=== PATIENT | female | born 1975 | race Caucasian/White ===

== ENCOUNTER 2024-04-01 15:12 | Outpatient (CLI) | payer OTHER, SELFPAY ==
--- NOTE | ~2024-04-01 | US_ITS ---
LEFT LOWER EXTREMITY VENOUS ULTRASOUND Ordering provider: Deborah Cummings NP History: . M79.426 - Pain in leg, unspecified . Comparison: None. FINDINGS: --COMMON FEMORAL: Patent and free of thrombus. Normal compressibility, phasic flow and augmentation. --PROXIMAL SUPERFICIAL FEMORAL: Patent and free of thrombus. Normal compressibility, phasic flow and augmentation. --DISTAL SUPERFICIAL FEMORAL: Patent and free of thrombus. Normal compressibility, phasic flow and au gmentation. --POPLITEAL: Patent and free of thrombus. Normal compressibility, phasic flow and augmentation. --POSTERIOR TIBIAL: Patent and free of thrombus. Normal compressibility, phasic flow and augmentation . IMPRESSION: Negative left lower extremity venous US. No deep vein thrombosis. Reviewed, dictated and finalized at location A. OMS PATROL OFFICER
== END 2024-04-01 15:13 | disposition home or self-care (01) ==
LOC: GOSHIMG 15:13
PROVIDERS: PCP Clinical Nurse Specialist; Visit Provider Nurse Practitioner
DX: M79.662 Pain in left lower leg (principal); M79.89 Other specified soft tissue disorders
CPT/HCPCS: 93971

== ENCOUNTER 2024-08-15 09:16 | Outpatient (CLI) | payer OTHER, SELFPAY ==
--- NOTE | ~2024-08-15 | US_ITS ---
RIGHT LOWER EXTREMITY VENOUS ULTRASOUND Ordering provider: YAMILA Burroughs History: . M79.89 - Other specified soft tissue disorders . Comparison: None. FINDINGS: --COMMON FEMORAL: Patent and free of thrombus. Normal compressibility, phasic flow and augmentation. --PROXIMAL SUPERFICIAL FEMORAL: Patent and free of thrombus. Normal compressibility, phasic flow and augmentation. --DISTAL SUPERFICIAL FEMORAL: Patent and free of thrombus. Normal compressibility, phasic flow and au gmentation. --POPLITEAL: Patent and free of thrombus. Normal compressibility, phasic flow and augmentation. --POSTERIOR TIBIAL: Patent and free of thrombus. Normal compressibility, phasic flow and augmentation . No mass was performed in the area of concern. IMPRESSION: Negative right lower extremity venous US. No deep vein thrombosis. Reviewed, dictated and finalized at location A.
== END 2024-08-15 09:17 | disposition home or self-care (01) ==
LOC: GOSHIMG 09:16
PROVIDERS: PCP Clinical Nurse Specialist; Visit Provider Clinical Nurse Specialist
DX: M79.89 Other specified soft tissue disorders (principal)
CPT/HCPCS: 93971

== ENCOUNTER 2024-08-15 09:47 | Outpatient (CLI) | payer OTHER, SELFPAY ==
--- OUTSIDE RECORDS SUMMARY | 2024-08-15 09:51 | XMS_ITS | Encounter Summary ---
Author Organization [facility] Address [address] [place] [address] Phone Care Team Providers Care Credit Support Specialist Name Role Phone Akhil Wagner DPM Unavailable [phone] Dima Laurent DO Primary Care Provider Molly Ibarra APRN, SENIOR QA AUTOMATION ENGINEER Unavailable Reason for Visit * Reason Comments Medication Refill Encounter Details Date Type Department Care Team (Late st Contact Info) Description 03/08/2022 Refill [facility] Oncology Services [address] [place] [address] Alberto Myles MD [address] [place] [address] Medication Refill Social History Tobacco Use Types Packs/Day Years Used Date Smoking Tobacco: Former Cigarettes 0.3 4 Smokeless Tobacco: Never Comments:Quit over 20yrs ago Alcohol Use Standard Drinks/Week Comments Yes 0 (1 standard drink = 0.6 oz pur e alcohol) socially Sexually Active Control Partners Comments Yes Comments No Sex and Gender Information Value Date Recorded Sex Assigned at Not on file Legal Sex Female 11:58 PM CDT Gender Identity Not on file Sexual Orientation Not on file COVID-19 Exposure Response Date Recorded In the last 10 days, have yo u been in contact with someone who was confirmed or suspected to have Coronavirus/COVID-19? No / Unsure 02/07/2022 7:23 AM CORRECTIVE THERAPY AIDE documented as of this encounter Miscellaneous Notes * Telephone Encounter - Amy Guerrero RN - 03/13/2022 4:37 PM CORRECTIVE THERAPY AIDE Omeprazole order pended, please review. Please review messages below. ECTIVE THERAPY AIDE * Telephone Encounter - Amy Guerrero RN - 03/13/2022 4:37 PM CORRECTIVE THERAPY AIDE Images from the original note were not included. Claire Jenkins RN You 2 hours ago (2:09 PM) Can you please follow up on this refill. Dr Sterling's note states patient is to continue the Omeprazole but Dr Myles only ordered it until the patient was seen in GI. It now needs to be filled by Dr Sterling. Thank you Claire Muñoz ASSOCIATE TECHNICIAN [phone] ECTIVE THERAPY AIDE * Telephone Encounter - Radha Luciano RN - 03/09/2022 3:18 PM CST Forwarding to GI nurse/team for future refills. Hallie's last note states to continue med. Dr. Myles ordered the Omeprazole originally to get her through until her GI refill. ECTIVE THERAPY AIDE documented in this encounter Plan of Treatment Upcoming Encounters Date Type Department Care Team (Late st Contact Info) Description 04/17/2025 3:20 PM CORRECTIVE THERAPY AIDE Office Visit [facility] Oncology Services [address] [place] [id number] Lisa Wadswroth Kinga, PAC [address] [place] [address] Discharge Disposition: Discharged to home or Selfcare documented as of this encounter Visit Diagnoses Not on filedocumented in this encounter Care Teams Credit Support Specialist Relationship Specialty Start Date End Date Dima Laurent DO [address] [facility] [place] [address] PCP - General Internal Medicine 10/06/21 Akhil Wagner DPM Podiatry 05/17/15 Molly Ibarra APRN, SENIOR QA AUTOMATION ENGINEER [address] [place] [address] Nurse Practitioner Advanced Practice Nurse 05/04/22 documented as of this encounter
--- OUTSIDE RECORDS SUMMARY | 2024-08-15 09:51 | XMS_ITS | Clinical Summary ---
Author Organization [facility] Address [address] [place] [address] Care Team Providers Care Salesforce Administrator Name Role Phone Carlos Ratliff Primary Care Provider [phone] Dom Barney MD Unavailable [phone] Allergies Active Allergy Reactions Criticality Noted Date Comments Erythromycin Nausea only,Vomiting High Reaction: Nausea, Vomiting, , Medications propranolol XL (INDERAL XL) 80 mg 24 hr capsule take 1 capsule by oral route every day at bedtime 0 0 12/15/19 16 Active Additional Information Patient taking differently:80 mgoral Nightly, Indications: Migraine Prevention, Reported on 11/27/2021 triamcinolone (KENALOG) 0.5 % cream apply by topical route 2 times every day NEEDED 0 05/11/19 11 Active Additional Information Patient taking differently:0.5 %topical As needed, rash, Reported on 11/27/2021 levothyroxine sodium (TIROSINT) 112 mcg capsule take 1 by Oral route every day 30 3 05/11/19 11 Active Additional Information Patient taking differently:112 mcgoral Daily (early AM), Indications: hypothyroidism, Reported on 11/27/2021 lisinopril (PRINIVIL,ZESTRIL) 20 mg tabletIndications: hypertension Take 30 mg by mouth displayer merchandise before breakfast 07/24/19 19 Active cholecalciferol (VITAMIN D-3) 50,000 unit tabletIndications: Prevention of Vitamin D Deficiency Take 50,000 Units by mouth once a week Mondays Active pravastatin (PRAVACHOL) 40 mg tabletIndications: hyperlipidemia Take 40 mg by mouth displayer merchandise before breakfast 07/24/19 19 Active furosemide (LASIX) 20 mg tabletIndications: Edema Take 20 mg by mouth as needed Active medroxyPROGESTERon e (PROVERA) 10 mg tabletIndications: Abnormal Uterine Bleeding due to Hormonal Imbalance Take 1 tab daily , once a day x 90 days. 30 tablet 2 12/26/19 19 Active Additional Information Patient not taking.Reported on 11/27/2021 rizatriptan BRAND REPRESENTATIVE (MAXALT-BRAND REPRESENTATIVE) 10 mg disintegrating tablet Take 10 mg by mouth once as needed for migraine 5 01/20/20 19 Active liraglutide, weight loss, 3 mg/0.5 mL (18 mg/3 mL) pen injectorIndication s:Weight Loss Management for Obese Patient (BMI >= 30) Inject 1.8 mg under the skin daily Indications: weight loss management for an obese person Active cholestyramine, bulk, powder Take 1 Dose by mouth nightly Active chlorpheniramine (CHLOR-TRIMETON) 4 mg tablet Take 4 mg by mouth every 6 (six) hours as needed for rhinitis Active acetaminophen (TYLENOL) 500 mg tablet Take 1 tablet (500 mg total) by mouth every 6 (six) hours as needed for pain 90 tablet 04/10/19 20 Active Additional Information Patient not taking.Reported on 11/27/2021 cimetidine (TAGAMET) 800 mg tablet Take 1 tablet by mouth daily 05/21/19 21 Active omeprazole (PriLOSEC) 40 mg capsule Take 40 mg by mouth daily 11/22/19 22 Active ferrous gluconate (FERGON) 240 mg (27 mg of elemental iron) tablet Take 240 mg by mouth 05/21/19 21 Active rOPINIRole (REQUIP) 0.25 mg tablet Take 0.25 mg by mouth nightly Active amLODIPine (NORVASC) 10 mg tablet Take 10 mg by mouth daily Active cyanocobalamin, vitamin B-12, (VITAMIN B-12 ORAL) Take by mouth Active melatonin solution 1 mg/mL Take by mouth Active Active Problems Problem Noted Date Diagnosed Date Endometrial hyperplasia with atypia 03/14/2019 Overview (03/14/2019): Added automatically from request for surgery [id number] Episode of heavy vaginal bleeding 01/20/2019 Overview (01/20/2019): Sched pelvic US HA with probable EMB; will await results of EMB;stop OCP, will go ahead and start Provera 10mg/day x [address] Barney and Dr. March; check CBC; looking through pt's hx, does have a hx of anemia with Hgbs of 9- 11.6; enc to go to ER if saturating more than 1 pad/hour; call with any questions or concerns. 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 Vitamin D deficiency 08/09/2013 Overview (06/30/2016): Vitamin D deficiency Hypothyroidism 08/09/2013 Overview (06/30/2016): Hypothyroidism Disorder of thyroid 02/18/2013 Overview (06/30/2016): Thyroid disease Depression 02/18/2013 Overview (06/30/2016): Depression Hypertension 02/18/2013 Overview (06/30/2016): Hypertension Hyperlipidemia 11/30/2011 Overview (06/30/2016): Hyperlipidemia LDL goal < 100 Carbuncle/boil 05/11/2010 Overview (06/29/2016): Recurrent boils Gastroesophageal reflux disease 05/11/2010 Overview (06/30/2016): GERD (gastroesophageal reflux disease) Polycystic ovaries 05/11/2010 Overview (06/30/2016): PCOS (polycystic ovarian syndrome) Benign hypertension 05/11/2010 Overview (06/30/2016): Benign Hypertension Immunizations Immunization Administration Dates Next Due Influenza, Quadrivalent, Spl it, Preservative Free, Intramuscular 02/08/2015 Influenza, Split 12/26/2010 Influenza, Trivalent, IM (MDV) 02/08/2015 Influenza, Trivalent, Preservative Free, Intramu scular 01/11/2016 Tdap 05/11/2010 Surgical History Surgery Date Site/Laterality Comments CHOLECYSTECTOMY 03/26/2009 - 03/25/2010 EXPLORATORY LAPAROTOMY 03/26/2000 - 03/25/2001 with D&C FOOT SURGERY 03/26/1996 - 03/25/1997 Left TYMPANOSTOMY TUBE PLACEMENT 03/26/1984 - 03/25/1985 Bila teral BLADDER SURGERY 03/26/1982 - 03/25/1983 Medical History Medical History Date Comments Hypothyroidism 2008 Gastroesophageal reflux disease 1999 Female infertility 2003 Infertility Hypertension 2004 Hx Other Medical ; Comm ents: ; Outcome: Female Hx Other Medical 1984 Hearing Disorder of gallbladder 06/2009 Hx Other Medical 2005 ; Outc ome: 39 week 7 lb(s) 12 oz Female Hx Other Medical Right side pain Kidney disease Polycystic disease, ovaries Vitamin D deficiency HLD (hyperlipidemia) Depression CKD (chronic kidney disease), stage II Spastic bladder 1982 Urinary incontinence induced hypertension 2007 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 Sleep apnea Family History Medical History Relation Name Comments Other Brother 1 Froylan Alive and well; Asthma Brother 2 Asthma; Congenital heart disease Father Con genital heart disease; Coronary artery disease Father Irma nary artery disease; Diabetes Father Diabetes mellit us; Hyperlipidemia Father Hyperlipidemi a; Hypertension Father Hypertension; Other Father Myocardial infa rction due to M; Cause of : Myocardial infarction due to M Stomach cancer Maternal Grandfather cance r, gastric; Cause of : cancer, gastric Hypertension Maternal Grandmother Hyperte nsion; Osteoporosis Maternal Grandmother Osteopo rosis; Other Maternal Grandmother blocka ge in bowels ; Cause of : blockage in bowels / heart problem ; Uterine cancer Maternal Grandmother Uteri ne Cancer; Hypertension Mother Hypertension; Osteoporosis Mother Osteoporosis; / Osteoporosis; Other Mother irregular hear t beat ; Thyroid disease Mother Thyroid dise ase; Heart disease Other Family history of Heart disease; Cancer Paternal Grandfather Cancer -; Cause of : Cancer - Stroke Paternal Grandmother Stroke; Coronary artery disease Sister 1 Sayda Irma nary artery disease; Diabetes type II Sister 1 Sayda Diabetes -T ype 2; Coronary artery disease Sister 2 Irma nary artery disease; Stroke Sister 2 Diabetes Sister 3 Diabetes mellit us; Hyperlipidemia Sister 4 Hyperlipidemi a; Hypertension Sister 5 Hypertension; Anesthesia problems Neg Hx Relation Name Status Comments Brother 1 Froylan Alive Brother 2 Father Alive Maternal Grandfather Alive Maternal Grandmother Alive Mother Alive Other Paternal Grandfather Paternal Grandmother Sister 1 Sayda Sister 2 Sister 3 Sister 4 Sister 5 Social History Tobacco Use Types Packs/Day Years Used Date Smoking Tobacco: Former Cigarettes 0 04/01/1991 - 04/01/1994 Smokeless Tobacco: Never Tobacco Cessation:Counseling Given: Not Answered Alcohol Use Standard Drinks/Week Comments Yes 0 (1 standard drink = 0.6 oz pur e alcohol) socially Comments No Sex and Gender Information Value Date Recorded Sex Assigned at Not on file Legal Sex Female 1:41 AM TEST EVALUATOR Gender Identity Not on file Sexual Orientation Not on file Obstetrics History Para Term AB IAB SAB Ectopic Multiple Livin g Live Births 1 1 Date Outcome GA Total Labor Labor/2nd/3rd Weight Sex Type Anes PTL Karlie A1 A5 Name Clin Para Last Filed Vital Signs Vital Sign Reading Time Taken Comments Blood Pressure 104/68 11/27/2021 4:27 PM CDT Pulse 106 11/27/2021 4:27 PM CDT Temperature 37.5 C (99.5 F) 11/27/2021 4:27 PM CDT Respiratory Rate 23 11/27/2021 4:27 PM CDT Oxygen Saturation 97% 11/27/2021 4:27 PM CDT Inhaled Oxygen Concentration - - Weight 168.1 kg (370 lb 9.6 oz) 11/27/2021 4:27 PM CDT Height 165.1 cm (5' 5 ) 11/27/2021 4:27 PM CDT Body Mass Index 61.67 11/27/2021 4:27 PM CDT Plan of Treatment Health Maintenance Due Date Last Done Comments Cervical Cancer Screening 1977 Colon Cancer Screening-Colonoscopy 1977 Depression Screening 1977 Hepatitis C Screening 1977 Hepatitis B Screening 10/21/1995 Regular Well Visit/Exam 18-64 10/21/1995 DTaP/Tdap/Td Vaccine (2 - Td or Tdap) 05/11/2020 05/11/2010 Breast Cancer Screening-Mammogram 11/03/2021 11/03/2020, 11/03/2020, 08/28/2019, Additional history exists Influenza Vaccine (Season Ended) 2024 02/12/2020, 01/11/2016, 02/08/2015, Additional history exists HPV Vaccines Aged Out No longer eligi ble based on patient's age to complete this topic Pneumococcal vaccine <65 Aged Out No longer eligible based on patient's age to complete this topic Medical Devices Implanted Type Area Care Rep Device Identifier Shelf Expiration Date Model / Serial / Lot [employer]lex Lab 13907-666-88 Mirena 52mg Device Contraceptive Levonorgetrel - [id number] - [id number] Implanted:Qty: 1 on 04/10/2019 by Kristy Villarreal MD at [facility] N/A: Uterus Berlex Lab 06/24/2021 [id number] / [id number] / [id number] Procedures Procedure Name Priority Date/Time Associated Diagnosis Comments DIGITAL MAMMOGRAPHY Routine 11/03/2013 3 :13 PM CDT from Last 3 Months or Most Recently Relevant to Health Maintenance Results * DIGITAL MAMMOGRAPHY (11/03/2013 3:13 PM CDT) Anatomical Region Laterality Modality Breast Mammography 11/03/2013 3:13 PM CDT Narrative 11/04/2013 8:57 AM CDT Vm Mammogram Performed by: SS Screening Mamm Bi Acc#: [id number] DATE OF EXAM: Nov 03 2013 CLINICAL HISTORY: Baseline screening. RESULT: Superior-inferior and lateral oblique views of each breast were obtained. There is a mild amount of fibroglandular tissue. No mass, pathological calcification, skin thickening or retraction was noted. The appearance is rather symmetrical. Digital technology was employed plus computer-aided detection software (R2) was utilized in interpretation of these images. This facility utilizes a reminder system to notify patients of yearly mammograms. IMPRESSION: A FEW SCATTERED BENIGN CALCIFICATIONS. ESSENTIALLY NEGATIVE BASELINE MAMMOGRAM. SUGGEST FOLLOW UP EXAM IN 1-2 YEARS OR AGE 40. BI-RADS CATEGORY 1 NEGATIVE EXAM. Interpreting Physician: BHARATH ANDUJAR M.D. Read on: Nov 03 2013 4:40P Transcribed by: cinda On: Nov 03 2013 4:40P Approved Electronically by: BHARATH ANDUJAR M.D. on: Nov 04 2013 8:57A Ordering DR: MARCELLA PENA Attending DR: DR DOM BARNEY Procedure Note Provider, MD Carlos - 07/19/2016 Vm Mammogram Performed by: Screening Mamm Bi Acc#: [id number] DATE OF EXAM: Nov 03 2013 CLINICAL HISTORY: Baseline screening. RESULT: Superior-inferior and lateral oblique views of each breast were obtained.There is a mild amount of fibroglandular tissue. No mass, pathologicalcalcification, skin thickening or retraction was noted. The appearance israther symmetrical. Digital technology was employed plus computer-aideddetection software (R2) was utilized in interpretation of these images.This facility utilizes a reminder system to notify patients of yearlymammograms. IMPRESSION: A FEW SCATTERED BENIGN CALCIFICATIONS. ESSENTIALLY NEGATIVE BASELINEMAMMOGRAM. SUGGEST FOLLOW UP EXAM IN 1-2 YEARS OR AGE 40. BI-RADS CATEGORY1 NEGATIVE EXAM. Interpreting Physician: BHARATH ANDUJAR M.D. Read on: Nov 03 20134:40P Transcribed by: cinda On: Nov 03 2013 4:40P Approved Electronically by: BHARATH ANDUJAR M.D. on: Nov 04 20138:57A Ordering DR: MARCELLA PENA Attending DR: DR DOM BARNEY Historical Provider MD [facility] PROCEDURES Sugey l Result from Last 3 Months or Most Recently Relevant to Health Maintenance Insurance [employer] OPEN ACCESS [employer] OPEN ACCESS [employer] OPEN ACCESS Care Teams Salesforce Administrator Relationship Specialty Start Date End Date Carlos Ratliff DO PCP - General 11/30/10 Dom Barney MD [address] [place] [address] DR JAMES [address] [place] [id number] [facility] 01/17/19
--- OUTSIDE RECORDS SUMMARY | 2024-08-15 09:51 | XMS_ITS | Encounter Summary ---
Author Organization [facility] Address [address] [place] [address] Phone Care Team Providers Care Equine Science Instructor Name Role Phone Akhil Wagner DPM Unavailable [phone] Dima Laurent DO Primary Care Provider Molly Ibarra APRN, TOSSER Unavailable Reason for Visit * Reason Comments Medication Refill Encounter Details Date Type Department Care Team (Late st Contact Info) Description 02/06/2023 [facility]ill [facility] [address] [place] [address] Molly Ibarra APRN, TOSSER [address] [place] [address] Medication Refill Social History Tobacco [...] on file Sexual Orientation Not on file documented as of this encounter Miscellaneous Notes * Telephone Encounter - Amy Guerrero RN - 02/07/2023 1:41 PM SAFETY AND HEALTH MANAGER Medication refilled and signed per [facility] chronic medication standing order for pediatric and adult patients. TY AND HEALTH MANAGER documented in this encounter Plan of Treatment Upcoming Encounters Date Type Department Care Team (Late st Contact Info) Description 04/17/2025 3:20 PM SAFETY AND HEALTH MANAGER [facility] [address] [place] [address] Lisa Wadsworth Kinga, PAC [address] [place] [address] Discharge Disposition: Discharged to home or Selfcare documented as of this encounter Visit Diagnoses Diagnosis Gastroesophageal reflux disease, unspecified whether esophagitis present Diarrhea, unspecified type documented in this encounter Care Teams Equine Science Instructor Relationship Specialty Start Date End Date Dima Laurent DO [address] [place] [address] PCP - General Internal Medicine 10/06/21 Akhil Wagner DPM Podiatry 05/17/15 Molly Ibarra APRN, TOSSER [address] [place] [address] Nurse Practitioner Advanced Practice Nurse 05/04/22 documented as of this encounter
--- OUTSIDE RECORDS SUMMARY | 2024-08-15 09:51 | XMS_ITS | Encounter Summary ---
Author Organization [facility] Address Counts include [address] at the [facility] [place] [address] Phone Care Team Providers Care Die Storage Clerk Name Role Phone Carlos Ratliff DO Primary Care Provider [phone] Reason for Visit * Reason Comments Med Refill Encounter Details Date Type Department Care Team (Late st Contact Info) Description 10/29/2022 Refill [facility] [place] [address] [place] [address] Ruddy Sandoval MD [address] [place], [place] Social History Tobacco Use Types Packs/Day Years Used Date Smoking Tobacco: Never Alcohol Use Standard Drinks/Week Comments Never 0 (1 standard drink = 0.6 oz pur e alcohol) Comments Unknown Sex and Gender Information Value Date Recorded Sex Assigned at Not on file Legal Sex Female 3:27 PM EDT Gender Identity Not on file Sexual Orientation Not on file documented as of this encounter Plan of Treatment Not on file documented as of this encounter Visit Diagnoses Not on filedocumented in this encounter Care Teams Die Storage Clerk Relationship Specialty Start Date End Date Carlos Ratliff DO [address] [place] [address] PCP - General Family Medicine 06/27/21 documented as of this encounter
--- OUTSIDE RECORDS SUMMARY | 2024-08-15 09:51 | XMS_ITS | Clinical Summary ---
Author Organization [facility] Address [address] [place] [address] Phone Care Team Providers Care Electrical Project Manager Name Role Phone Akhil Wagner DPM Unavailable [phone] Dima Laurent DO Primary Care Provider Molly Ibarra APRN, PHYSICIAN REPRESENTATIVE Unavailable Allergies Active Allergy Reactions Criticality Noted Date Comments Erythromycin Rash,Nausea 05/17/2015 Medications Rizatriptan Benzoate 10 MG Tablet Take 10 mg by mouth once as needed. May repeat in 2 hours in needed Active levothyroxine (SYNTHROID) 112 MCG TabletIndication s:Euthyrox Take 112 mcg by mouth daily. Indications: Euthyrox Active propranolol (INDERAL LA) 80 MG CAPSULE SR 24 HRIndications:Mi graine every morning. Indications: Migraine Headache 1 9 Active lisinopril (PRINIVIL, ZESTRIL) 20 MG Tablet Take 40 mg by mouth daily. 3 9 Active pravastatin (PRAVACHOL) 40 MG Tablet daily. 2 9 Active ergocalciferol (VITAMIN D) 06064 UNIT Capsule once a week. 12 9 Active amLODIPine (NORVASC) 10 MG Tablet every morning. 1 Active Ferate 240 (27 Fe) MG Tablet 2 Tablets every evening. 1 Active rOPINIRole (REQUIP) 3 MG Tablet Take 0.25 mg by mouth nightly. Active Cyanocobalamin (B-12) 2500 MCG SL Tablet by Sublingual route. Active ondansetron (ZOFRAN-ODT) 4 MG TABLET DISPERSIBLEIndic ations:Nausea Take 1 Tablet by mouth every 8 hours as needed for Nausea - 1st line. 10 Tablet 3 Active Semaglutide,0.25 or 0.5MG/DOS, (Ozempic, 0.25 or 0.5 MG/DOSE,) 2 MG/1.5ML Solution Pen-injector Weekly on Sunday 3 Active Melatonin 5 MG Tablet Take 3 mg by mouth nightly. Active Probiotic Product (PROBIOTIC PEARLS ADVANTAGE PO) Take by mouth. Activ e permethrin (ACTICIN) 5 % Cream APPLY TO ENTIRE BODY FROM NECK DOWN AND LEAVE ON OVERNIGHT (WASH OFF IN MORNING AND REPEAT REGIMEN IN 1 WEEK) 4 Active famotidine (PEPCID) 20 MG TabletIndication s:Gastroesophage al reflux disease, unspecified whether esophagitis present Take 1 Tablet by mouth every evening. 90 Tablet 3 4 Active Cholecalciferol (VITAMIN D3 PO) Take by mouth. 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 03/23/2021 Leukemoid reaction 07/06/2020 Normocytic anemia 07/06/2020 Flat foot (pes planus) (acquired), right foot Gastrocnemius equinus of right lower extremity 0 05/17/2015 Posterior tibial tendonitis of right leg 016 Encounter for breast cancer screening using non-mammogram modality Encounters Date Type Department Care Team Description 05/20/2024 Refill [facility] - [facility] - [place] [address] [place] [address] Molly Ibarra APRN, SHAKIRA Medication Refill from Last 3 Months Immunizations Immunization Administration Dates Next Due Influenza Vaccine 01/11/2016 Influenza Vaccine, Quadrivalent, PF 02/08/2015 Influenza, Recombinant, Quadrivalent,injectable, Pf 02/12/2020 Influenza, Seasonal, Injectable, Undefined 02/08 TDAP Vaccine 05/11/2010 Family History Medical History Relation Name Comments Diabetes Father Heart Disease Father Hypertension Father Cancer Maternal Grandfather Alzheimer's Disease Maternal Grandmother Cancer Maternal Grandmother Hypertension Maternal Grandmother Hypertension Mother Diabetes Paternal Grandfather Heart Disease Paternal Grandfather Hypertension Paternal Grandfather Diabetes Paternal Grandmother Heart Disease Paternal Grandmother Hypertension Paternal Grandmother Relation Name Status Comments Father Maternal Grandfather Maternal Grandmother Mother Alive Paternal Grandfather Paternal Grandmother Social History Tobacco Use Types Packs/Day Years Used Date Smoking Tobacco: Former Cigarettes 0.3 4 Smokeless Tobacco: Never Tobacco Cessation:Counseling Given: Not Answered Comments:Quit over 20yrs ago Alcohol Use Standard Drinks/Week Comments Yes 0 (1 standard drink = 0.6 oz pur e alcohol) socially Sexually Active Control Partners Comments Yes Comments No Sex and Gender Information Value Date Recorded Sex Assigned at Not on file Legal Sex Female 11:58 PM CDT Gender Identity Not on file Sexual Orientation Not on file Last Filed Vital Signs Vital Sign Reading Time Taken Comments Blood Pressure 113/81 04/11/2024 1:11 PM LYE MACHINE OPERATOR Pulse 73 04/11/2024 1:11 PM LYE MACHINE OPERATOR Temperature 36.8 C (98.3 F) 04/11/2024 1:11 PM LYE MACHINE OPERATOR Respiratory Rate 18 04/11/2024 1:11 PM LYE MACHINE OPERATOR Oxygen Saturation 98% 04/11/2024 1:11 PM LYE MACHINE OPERATOR Inhaled Oxygen Concentration - - Weight 159.4 kg (351 lb 6.4 oz) 04/11/2024 1:11 PM LYE MACHINE OPERATOR Height 163.8 cm (5' 4.5 ) 04/11/2024 1:11 PM LYE MACHINE OPERATOR Body Mass Index 59.39 04/11/2024 1:11 PM LYE MACHINE OPERATOR Plan of Treatment Upcoming Encounters Date Type Department Care Team (Late st Contact Info) Description 04/17/2025 3:20 PM LYE MACHINE OPERATOR [facility] [address] [place] [address] Lisa Wadsworth Kinga, PAC [address] [place] [address] Discharge Disposition: Discharged to home or Selfcare Health Maintenance Due Date Last Done Comments Hepatitis C Virus (HCV) Screening 1977 Hepatitis B Immunization (1 of 3 - 19+ 3-dose series) 1996 Pap Smear 1998 Cervical Cancer Screening (CCS) 10/21/2007 HPV/Cotest 10/21/2007 Td Immunization Every 10 Years (Adults With 1 Tdap) 05/11/2020 05/11/2010 Mammogram 11/03/2021 11/03/2020, 08/28/2019 Colonoscopy 2022 Colorectal Cancer Screening 2022 Influenza Immunization (#1) 11/25/202301/24, 01/11/2016, 02/08/2015, Additional history exists SARS-COV-2 Immunization ( season) 2023 07/12/2020, 06/21/2020 Respiratory Syncytial Virus (RSV) Immunization (Adult) (1 - 1-dose 75+ series) 2052 DTaP/Tdap/Td Immunization Discontinued 05/11/2010 Discussion re Starting/Frequency of Mammograms Completed 11/03/2020, 08/28/2019 Meningococcal Immunization (ACWY) Aged Out No longer eligible based on patient's age to complete this topic Pneumococcal Immunization Combined Aged Out No longer eligible based on patient's age to complete this topic Rotavirus Immunization Aged Out No lo nger eligible based on patient's age to complete this topic Procedures Procedure Name Priority Date/Time Associated Diagnosis Comments NIRALI SCREENING BILATERAL DIGITAL W CAD W TOMMIE Routine 11/03/2020 1:49 PM CDT Encounter for breast cancer screening using non-mammogram modality from Last 3 Months or Most Recently Relevant to Health Maintenance Results * NIRALI SCREENING BILATERAL DIGITAL W CAD W TOMMIE (11/03/2020 1:49 PM CDT) Anatomical Region Laterality Modality breast Bilateral Mammography 11/03/2020 1:12 PM CDT Narrative 11/05/2020 12:01 PM CDT - NIRALI SCREENING BILATERAL DIGITAL W CAD W TOMMIE BILATERAL DIGITAL SCREENING MAMMOGRAM 3D/2D WITH CAD WITH MEDIOLATERAL OBLIQUE CRANIOCAUDAL: 11/03/2020 The study was acquired using digital technology and interpreted from soft copy. Current study was also evaluated with ICAD version 7.2. 2D digital mammographic views, as well as 3D digital tomosynthesis were performed in the CC and MLO projections. CLINICAL: Routine screening. Patient has no complaints. No personal history of cancer. No family history of breast cancer. Patient reports a 25 pound weight loss since last mammogram. COMPARISONS: Comparison is made to exams dated: 08/28/2019 [facility] and 11/03/2013 [facility]. BREAST TISSUE:There are scattered fibroglandular densities in both breasts. FINDINGS: No significant masses, calcifications, or other findings are seen in either breast. There has been no significant interval change. IMPRESSION: BI-RAD 1 NEGATIVE There is no mammographic evidence of malignancy. A 1 year screening mammogram is recommended. The patient has been or will be contacted. The patient will be entered into a reminder system with a target due date of 1 year for her next screening exam. Electronically signed by: Sissy roberson/jaylan:11/05/2020 08:32:56 Sample Prep Technician(s): RT Pita(R)(M), [facility] letter sent: Normal Exam Reading location: [facility] BI-RADS: 1 Negative Procedure Note Sissy Wiley MD - 11/05/2020 - NIRALI SCREENING BILATERAL DIGITAL W CAD W TOMMIE BILATERAL DIGITAL SCREENING MAMMOGRAM 3D/2D WITH CAD WITH MEDIOLATERAL OBLIQUE CRANIOCAUDAL: 11/03/2020 The study was acquired using digital technology and interpreted from soft copy. Current study was also evaluated with ICAD version 7.2. 2D digital mammographic views, as well as 3D digital tomosynthesis were performed in the CC and MLO projections. CLINICAL: Routine screening. Patient has no complaints. No personal history of cancer. No family history of breast cancer. Patient reports a 25 pound weight loss since last mammogram. COMPARISONS: Comparison is made to exams dated: 08/28/2019 [facility] and 11/03/2013 [facility]. BREAST TISSUE:There are scattered fibroglandular densities in both breasts. FINDINGS: No significant masses, calcifications, or other findings are seen in either breast. There has been no significant interval change. IMPRESSION: BI-RAD 1 NEGATIVE There is no mammographic evidence of malignancy. A 1 year screening mammogram is recommended. The patient has been or will be contacted. The patient will be entered into a reminder system with a target due date of 1 year for her next screening exam. Electronically signed by: Sissy Wiley M.D. ab/penrad:11/05/2020 08:32:56 Sample Prep Technician(s): RT Pita(Jerzy)(M), [facility] letter sent: Normal Exam Reading location: [facility] BI-RADS: 1 Negative [facility] Shi Andre [facility] IMG MAMMO ORDERABLES Sugey l Result from Last 3 Months or Most Recently Relevant to Health Maintenance Insurance [employer] Care Teams Electrical Project Manager Relationship Specialty Start Date End Date Dima Laurent DO [address] [place] [address] PCP - General Internal Medicine 10/06/21 Akhil Wagner DPM Podiatry 05/17/15 Molly Ibarra APRN, PHYSICIAN REPRESENTATIVE [address] [place] [address] Nurse Practitioner Advanced Practice Nurse 05/04/22
--- OUTSIDE RECORDS SUMMARY | 2024-08-15 09:51 | XMS_ITS | Referral Summary ---
Author Organization [facility] Medical Office Building [facility] Address [address] [place] [address] Care Team Providers Care Cost Reduction Engineer Name Role Phone Carlos Ratliff Primary Care Provider [phone] Dom Barney MD Unavailable [phone] Allergies Active Allergy Reactions Criticality Noted Date [...] tabletIndications: hypertension Take 30 mg by mouth spark tester before breakfast 07/24/19 19 Active cholecalciferol (VITAMIN D-3) 50,000 unit tabletIndications: Prevention of Vitamin D Deficiency Take 50,000 Units by mouth once a week Mondays Active pravastatin (PRAVACHOL) 40 mg tabletIndications: hyperlipidemia Take 40 mg by mouth spark tester before breakfast 07/24/19 19 Active furosemide (LASIX) 20 mg tabletIndications: Edema Take 20 mg by mouth as needed Active medroxyPROGESTERon e (PROVERA) 10 mg tabletIndications: Abnormal Uterine Bleeding due to Hormonal Imbalance Take 1 tab daily , once a day x 90 days. 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 DIS STAGE II Vitamin D deficiency [...] Preservative Free, Intramu scular 01/11/2016 Tdap 05/11/2010 Social History Tobacco Use Types Packs/Day Years Used Date Smoking Tobacco: Former Cigarettes 0 04/01/1991 - 04/01/1994 Smokeless Tobacco: Never Tobacco Cessation:Counseling Given: Not Answered Alcohol Use Standard Drinks/Week Comments Yes 0 (1 standard drink = 0.6 oz pur e alcohol) socially Comments No Sex and Gender Information Value Date Recorded Sex Assigned at Not on file Legal Sex Female 1:41 AM HYDRODYNAMICS PROFESSOR Gender Identity Not on file Sexual Orientation [...] 11/27/2021 4:27 PM CDT Plan of Treatment Not on file Medical Devices Implanted Type Area Hardware Assembler Device Identifier Shelf Expiration Date Model / Serial / Lot [employer] [facility] 46904-512-00 Mirena 52mg Device Contraceptive Levonorgetrel - [id number] - [id number] Implanted:Qty: 1 on 04/10/2019 by Kristy Villarreal MD at [facility] N/A: Uterus [employer] Lab 06/24/2021 85841-862- [id number] / [id number] / [id number] Procedures Procedure Name Priority Date/Time Associated Diagnosis Comments DIGITAL MAMMOGRAPHY Routine 11/03/2013 3 :13 PM CDT from Last 3 Months or Most Recently Relevant to Health Maintenance Results * DIGITAL MAMMOGRAPHY (11/03/2013 3:13 PM CDT) Anatomical Region Laterality Modality Breast Mammography 11/03/2013 3:1 3 PM CDT Narrative 11/04/2013 8:57 AM CDT Vm Mammogram Performed by: Screening Mamm Bi Acc#: [id number] DATE OF EXAM: Nov 03 2013 CLINICAL [...] Mammogram Performed by: Screening Mamm Bi Acc#: [id number] DATE OF EXAM: Nov 03 2013 CLINICAL [...] Most Recently Relevant to Health Maintenance Insurance [employer] OPEN ACCESS [employer] OPEN ACCESS Business e via [employer] OPEN ACCESS Care Teams Cost Reduction Engineer Relationship Specialty Start Date End Date Carlos Ratliff DO PCP - General 11/30/10 Dom Barney MD [address] [place] [address] [place] [address] Senior Engineering Specialist Obstetrics and Gynecology 01/17/19
--- OUTSIDE RECORDS SUMMARY | 2024-08-15 09:51 | XMS_ITS | Clinical Summary ---
Author Organization [facility] Facility Address [address] [place] [address] Care Team Providers Care Program/Music Director Name Role Phone Carlos Ratliff DO Primary Care Provider [phone] Allergies Active Allergy Reactions Criticality Noted Date Comments Erythromycin 06/29/2021 Medications amLODIPine (NORVASC) 10 MG tablet Take 10 mg by mouth 1 (one) time each day Active cimetidine (TAGAMET) 800 MG tablet Take 800 mg by mouth every night Active ferrous gluconate (Ferate) 240 (27 Fe) MG tablet Take 240 mg by mouth in the morning and 240 mg at noon and 240 mg in the evening. Take with meals. Active furosemide (LASIX) 20 MG tablet Take 20 mg by mouth in the morning and 20 mg in the evening. Active levothyroxine sodium (TIROSINT) 112 MCG capsule Take 112 mcg by mouth 1 (one) time each day Active lisinopril 40 MG tablet Take 40 mg by mouth 1 (one) time each day Active pravastatin (PRAVACHOL) 40 MG tablet Take 40 mg by mouth 1 (one) time each day Active cholestyramine light (Prevalite) 4 g packet Take 4 g by mouth in the morning and 4 g in the evening. Active propranolol (INDERAL) 80 MG tablet Take 80 mg by mouth in the morning and 80 mg in the evening and 80 mg before bedtime. Active rizatriptan (MAXALT) 10 MG tablet Take 10 mg by mouth 1 (one) time if needed for migraine May repeat in 2 hours if unresolved. Do not exceed 30 mg in 24 hours. Active liraglutide (Victoza) 18 MG/3ML injection Inject under the skin 1 (one) time each day Active ergocalciferol 1.25 MG (35953 UT) capsule Take 50,000 Units by mouth 1 (one) time per week Active Active Problems Problem Noted Date Diagnosed Date Chronic kidney disease, Stage II (mild) 06/30/19 Overview (06/29/2021): CREATININE 0.9 GFR Dec Obstructive sleep apnea 06/29/2021 Benign essential hypertension 06/29/2021 Urinary incontinence 06/29/2021 Migraine 06/29/2021 Edema of lower extremity 06/29/2021 Lumbosacral radiculopathy 06/29/2021 Morbid obesity 06/29/2021 Menorrhagia 06/29/2021 Overview (06/29/2021): 2020- D&C AND THEN IUD Leukocytosis 06/29/2021 Microcytosis 06/29/2021 Overview (06/29/2021): MCV 72.6 Hematuria syndrome 06/29/2021 Family History Medical History Relation Comments Heart disease Father Hypertension Mother Stroke Sibling Stroke Sister Relation Status Comments Father Alive Mother Sibling Alive Sister Social History Tobacco Use Types Packs/Day Years Used Date Smoking Tobacco: Never Alcohol Use Standard Drinks/Week Comments Never 0 (1 standard drink = 0.6 oz pur e alcohol) Comments Unknown Sex and Gender Information Value Date Recorded Sex Assigned at Not on file Legal Sex Female 3:27 PM EDT Gender Identity Not on file Sexual Orientation Not on file Plan of Treatment Health Maintenance Due Date Last Done Comments Hepatitis B Vaccine (1 of 3 - 19+ 3-dose series) 10/20 Pneumococcal Vaccine: Peds ( 0 to 5 Years) and At-Risk Patients (6 to 49 Years) (1 of 2 - PCV) 1996 Influenza Vaccine (Season Ended) 2024 Insurance [employer] Care Teams Program/Music Director Relationship Specialty Start Date End Date Carlos Ratliff DO [address] [place] [address] PCP - General Family Medicine 06/27/21
--- OUTSIDE RECORDS SUMMARY | 2024-08-15 09:51 | XMS_ITS | Encounter Summary ---
Author Organization [facility] Address [address] [place] [address] Phone Care Team Providers Care Trim Technician Name Role Phone Akhil Wagner DPM Unavailable [phone] Dima Laurent DO Primary Care Provider Molly Ibarra APRN, SUPERINTENDENT OF SCHOOLS Unavailable Encounter Details Date Type Department Care Team (Late st Contact Info) Description 02/02/2022 Transcribe Orders [facility] Preop[facility]Pac[facility] II [address] [place] [address] Ismael Sterling MD [address] [place] [address] Preop testing (Primary Dx) Social History Tobacco Use Types Packs/Day Years [...] suspected to have Coronavirus/COVID-19? No / Unsure 02/04/2022 11:37 AM DIAL MARKER documented as of this encounter Plan of Treatment Upcoming Encounters Date Type Department Care Team (Late st Contact Info) Description 04/17/2025 3:20 PM DIAL MARKER Office Visit [facility] Oncology Services [address] [place] [address] Lisa Wadsworth Kinga, PAC [address] [place] [address] Discharge Disposition: Discharged to home or Selfcare documented as of this encounter Results * SARS-COV-2 BY MOLECULAR (02/04/2022 11:50 AM DIAL MARKER) SARSCOV2 NOT DETECTED (Referenc e Range for this test is Not Detected) [facility] NOW 02/04/2022 12:39 PM DIAL MARKER [facility] Comment:This test was perfor med by a MOLECULAR, NON-PCR method Other NASAL STRUCTURE / Unknown Non-Phlebotomy Collection / Unknown 02/04/2022 11:50 AM DIAL MARKER 02/04/2022 12:02 PM DIAL MARKER Narrative [facility] - 02/04/2022 12:39 PM DIAL MARKER This test has been authorized by the FDA under an Emergency Use Authorization (EUA) only. Negative results should be treated as presumptive and, if inconsistent with clinical signs and symptoms or necessary for patient management, the patient should be tested with an alternative molecular assay. Negative results do not preclude SARS-CoV-2 infection or any other respiratory pathogen. Additional information for Clinicians can be found at: https://www.fda.gov/media/658842/download Additional information for Patients can be found at: https://www.fda.gov/media/239364/download Ismael Sterling MD MICROBIOLOGY - GENERAL ORDERABL ES Final Result [facility] [address] [place] [address] documented in this encounter Visit Diagnoses Diagnosis Preop testing- Primary Preoperative examination, unspecified documented in this encounter Care Teams Trim Technician Relationship Specialty Start Date End Date Dima Laurent DO [address] [facility] [place] [address] PCP - General Internal Medicine 10/06/21 Akhil Wagner DPM Podiatry 05/17/15 Molly Ibarra APRN, SUPERINTENDENT OF SCHOOLS [address] [place] [address] Nurse Practitioner Advanced Practice Nurse 05/04/22 documented as of this encounter
--- OUTSIDE RECORDS SUMMARY | 2024-08-15 09:51 | XMS_ITS | Encounter Summary ---
Author Organization [facility] Address [address] [place] [address] Phone Care Team Providers Care Nibbler Operator Name Role Phone Akhil Wagner DPM Unavailable [phone] Dima Laurent DO Primary Care Provider Molly Ibarra APRN, LAP REGULATOR Unavailable Reason for Visit * Reason Comments Medication Refill Encounter Details Date Type Department Care Team (Late st Contact Info) Description 05/31/2023 Refill [facility] G[facility] [address] [place] [address] Molly Ibarra APRN, LAP REGULATOR [address] [place] [address] Medication Refill Social History Tobacco [...] Telephone Encounter - Amy Guerrero RN - 06/01/2023 9:32 AM GRAIN DRIER Medication refilled and signed per [facility] medication standing order for pediatric and adult patients. N DRIER * Telephone Encounter - Amy Guerrero RN - 06/01/2023 9:26 AM GRAIN DRIER Pharmacy requesting refill of: Requested Prescriptions Pending Prescriptions Disp Refills colestipol (COLESTID) 1 GM Tablet [Pharmacy Med Name: Colestipol HCl 1 GM Oral Tablet] 180 Tablet 0 Sig: Take 1 tablet by mouth twice daily pantoprazole (PROTONIX) 40 MG Tablet Delayed Response [Pharmacy Med Name: Pantoprazole Sodium 40 MGOral Tablet Delayed Release] 90 Tablet 0 Sig: Take 1 tablet by mouth once daily Last fill: 02/07/2023 Patients last OV with GI: 05/04/2022 Next Office Visit with GI: none scheduled. Called patient, appt scheduled for . N DRIER documented in this encounter Plan of Treatment Upcoming Encounters Date Type Department Care Team (Late st Contact Info) Description 04/17/2025 3:20 PM GRAIN DRIER Office Visit [facility] Oncology Services [address] [place] [address] Lisa Wadsworth Kinga, PAC [address] [place] [address] Discharge Disposition: Discharged to home or Selfcare documented as of this encounter Visit Diagnoses Diagnosis Diarrhea, unspecified type Gastroesophageal reflux disease, unspecified whether esophagitis present documented in this encounter Care Teams Nibbler Operator Relationship Specialty Start Date End Date Dima Laurent DO [address] [place] [address] [place] [address] PCP - General Internal Medicine 10/06/21 Akhil Wagner DPM Podiatry 05/17/15 Molly Ibarra APRN, LAP REGULATOR [address] [place] [address] Nurse Practitioner Advanced Practice Nurse 05/04/22 documented as of this encounter
--- OUTSIDE RECORDS SUMMARY | 2024-08-15 09:51 | XMS_ITS | Encounter Summary ---
Author Organization [facility] Address [address] [place] [address] Phone Care Team Providers Care Human Resources Compliance Manager Name Role Phone Akhil Wagner DPM Unavailable [phone] Dima Laurent DO Primary Care Provider Molly Ibarra APRN, PAINTING DEPARTMENT SUPERVISOR Unavailable Reason for Visit * Reason Comments Medication Refill Encounter Details Date Type Department Care Team (Late st Contact Info) Description 08/30/2023 [facility]ill [facility] - [facility] [address] [place] [address] Molly Ibarra APRN, PAINTING DEPARTMENT SUPERVISOR [address] [place] [address] Medication Refill Social History Tobacco [...] encounter Miscellaneous Notes * Telephone Encounter - Sun Patel RN - 08/30/2023 8:25 AM CDT Medication failed the protocol, provider to review and approve the medication order if appropriate. Requested Prescriptions Pending Prescriptions Disp Refills pantoprazole (PROTONIX) 40 MG Tablet Delayed Response [Pharmacy Med Name: Pantoprazole Sodium 40 MGOral Tablet Delayed Release] 90 Tablet 0 Sig: Take 1 tablet by mouth once daily Proton Pump Inhibitors Protocol Passed - 08/30/2023 6:51 AM Passed - No positive test in the past 12 months or most recent test was negative Passed - Visit with relevant provider in past 12 months or upcoming 90 days Recent Visits Date Type Provider Dept 06/04/23 Office Visit Molly Ibarra APRN, PAINTING DEPARTMENT SUPERVISOR [facility] Showing recent visits within past 365 days and meeting all other requirements Future Appointments No visits were found meeting these conditions. Showing future appointments within next 90 days and meeting all other requirements Passed - No active on record colestipol (COLESTID) 1 GM Tablet [Pharmacy Med Name: Colestipol HCl 1 GM Oral Tablet] 180 Tablet 0 Sig: Take 1 tablet by mouth twice daily Bile Acid Sequestrants Protocol Failed - 08/30/2023 6:51 AM Failed - Lipid panel in past year LDL Date Value Ref Range Status 07/17/2022 63 5 - 130 mg/dL Final HDL CHOLESTEROL Date Value Ref Range Status 07/17/2022 38.3 (L) >40 mg/dL Final CHOLESTEROL Date Value Ref Range Status 07/17/2022 121 <=200 mg/dL Final TRIGLYCERIDES Date Value Ref Range Status 07/17/2022 98 <150 mg/dL Final VLDL Date Value Ref Range Status 07/17/2022 20 5 - 55 mg/dL Final CHOL/HDL RATIO Date Value Ref Range Status 07/17/2022 3.2 0.0 - 4.4 Final NON-HDL CHOLESTEROL Date Value Ref Range Status 07/17/2022 82.7 <130 mg/dL Final Passed - Visit with relevant provider in past year or upcoming 90 days Recent Visits Date Type Provider Dept 06/04/23 Office Visit Molly Ibarra APRN, PAINTING DEPARTMENT SUPERVISOR [facility] Showing recent visits within past 365 days and meeting all other requirements Future Appointments No visits were found meeting these conditions. Showing future appointments within next 90 days and meeting all other requirements documented in this encounter Plan of Treatment Upcoming Encounters Date Type Department Care Team (Late st Contact Info) Description 04/17/2025 3:20 PM FIXED INCOME PORTFOLIO MANAGER Office Visit [facility] Oncology Services [address] [place] [id number] Lisa Wadsworth Kinga, PAC [address] [place] [address] Discharge Disposition: Discharged to home or Selfcare documented as of this encounter Visit Diagnoses Diagnosis Gastroesophageal reflux disease, unspecified whether esophagitis present Diarrhea, unspecified type documented in this encounter Care Teams Human Resources Compliance Manager Relationship Specialty Start Date End Date Dima Laurent DO [address] [place] [address] [place] [address] PCP - General Internal Medicine 10/06/21 Akhil Wagner DPM Podiatry 05/17/15 Molly Ibarra APRN, PAINTING DEPARTMENT SUPERVISOR [address] [place] [address] Nurse Practitioner Advanced Practice Nurse 05/04/22 documented as of this encounter
[2024-08-15 12:25] LABS: Basophils Percent Auto 0.4 % (0.2-1.2); Eosinophils Absolute Auto 0.2 K/mm3 (0-0.3); Eosinophils Percent Auto 1.9 % (0-4.4); Hematocrit 45.8 % (37.0-47.0); Hemoglobin 14.4 g/dL (12.0-15.0); Immature Granulocyte Absolute 0.02 K/mm3 (0.00-0.031); Immature Granulocyte Percent A 0.2 % (0-0.5); Lymphocytes Absolute Auto 2.72 K/mm3 (0.9-3.2); Lymphocytes Percent Auto 24.1 % (18.3-44.2); Mean Corpuscular HGB Conc 31.4 g/dl (32-36); Mean Corpuscular Hemoglobin 26.2 pg (26-34); Mean Corpuscular Volume 83.3 fl (80-100); Mean Platelet Volume 9.9 fl (7.4-10.4); Monocytes Absolute Auto 0.7 K/mm3 (0.1-0.6); Monocytes Percent Auto 5.8 % (2.6-8.5); Neutrophils Absolute Auto 7.6 K/mm3 (1.3-6.7); Neutrophils Percent Auto 67.6 % (45.5-73.1); Platelet Count Result 282 k/mm3 (150-375); Red Cell Distribution Width 14.5 % (11.5-14.5); White Blood Count 11.3 K/mm3 (4.5-10.0)
[2024-08-15 12:42] LABS: Alanine Aminotransferase 161 U/L (6-35); Albumin Level 3.9 g/dL (3.5-5.1); Alkaline Phosphatase 105 U/L (38-126); Anion Gap 5 mmol/L (4-12); Aspartate Amino Transferase 117 U/L (14-36); Bilirubin,Total 0.7 mg/dL (0.2-1.3); Blood Urea Nitrogen 11 mg/dL (7-17); Calcium 9.2 mg/dL (8.4-10.2); Carbon Dioxide 29 mmol/L (22-30); Chloride 106 mmol/L (98-107); Cholesterol 155 mg/dL (0-200); Estimated Glomerular Filt Rate > 60; Glucose 89 mg/dL (65-110); HDL Direct 44 mg/dL; Magnesium 1.9 mg/dL (1.6-2.3); Potassium 4.1 mmol/L (3.4-5.0); Sodium 140 mmol/L (137-145); Triglycerides 152 mg/dL (<150)
[2024-08-15 12:56] LABS: LDL Cholesterol Direct 65 mg/dL
[2024-08-15 13:02] LABS: Free T4 Free Thyroxine 1.38 ng/dL (0.78-2.19); Vitamin D 25 Hydroxy 30.4 ng/mL
[2024-08-15 13:10] LABS: Creatinine Urine 30.9 mg/dL
[2024-08-15 13:14] LABS: Total Triiodothyronine (T3) 1.15 NG/ML (0.97-1.69)
[2024-08-15 14:30] LABS: MALB Creatinine Ratio < 19.4 mg/g (0-30); Microalbumin Urine Random < 6.0 mg/L (0-16.7)
[2024-08-15 18:55] LABS: Hemoglobin A1C 5.1 % (<5.7)
== END 2024-08-15 09:48 | disposition home or self-care (01) ==
LOC: ANHGOSHLAB 09:49
PROVIDERS: PCP Clinical Nurse Specialist; Visit Provider Clinical Nurse Specialist
DX: E53.8 Deficiency of other specified B group vitamins (principal); R73.9 Hyperglycemia, unspecified; R25.2 Cramp and spasm; Z13.228 Encounter for screening for other metabolic disorders; I10 Essential (primary) hypertension; E78.2 Mixed hyperlipidemia; E07.9 Disorder of thyroid, unspecified; E55.9 Vitamin D deficiency, unspecified; D50.9 Iron deficiency anemia, unspecified; R73.01 Impaired fasting glucose
CPT/HCPCS: 36415; 80053; 80061; 82043; 82306; 82607; 83036; 83735; 84439; 84443; 84480; 85025

== ENCOUNTER 2024-09-11 09:06 | Outpatient (CLI) | payer OTHER, SELFPAY ==
--- OUTSIDE RECORDS SUMMARY | 2024-09-11 09:26 | XMS_ITS | Clinical Summary ---
Author Organization [facility] Facility Address [address] [place] [address] Care Team Providers Care Audiovisual Aids Technician Name Role Phone Carlos Ratliff DO Primary Care Provider [phone] Allergies Active Allergy Reactions Criticality Noted Date [...] time each day Active ergocalciferol 1.25 MG (61474 UT) capsule Take 50,000 Units by mouth [...] 1996 Influenza Vaccine (Season Ended) 2024 Insurance [employer] Care Teams Audiovisual Aids Technician Relationship Specialty Start Date End Date Carlos Ratliff DO [address] [place] [address] PCP - General Family Medicine 06/27/21
--- OUTSIDE RECORDS SUMMARY | 2024-09-11 09:26 | XMS_ITS | Encounter Summary ---
Author Organization [facility] Address [address] [place] [address] Phone Care Team Providers Care Leather Stamper Name Role Phone Akhil Wagner DPM Unavailable [phone] Dima Laurent DO Primary Care Provider Molly Ibarra APRN, CONVEYOR LINE BAKERY WORKER Unavailable Reason for Visit * Reason Comments Medication Refill Encounter Details Date Type Department Care Team (Late st Contact Info) Description 09/01/2024 Refill [facility] - Gastroenterology - [place] [address] [place] [address] Molly Ibarra APRN, CONVEYOR LINE BAKERY WORKER [address] [place] [address] Medication Refill Social History Tobacco [...] st Contact Info) Description 04/17/2025 3:20 PM CLOUD ENGINEER [facility] Oncology Services [address] [place] [phone] Wadsworth Lisa Kinga, PAC [address] [place] [address] Discharge Disposition: Discharged to home or Selfcare documented as of this encounter Visit Diagnoses Diagnosis Gastroesophageal reflux disease, unspecified whether esophagitis present documented in this encounter Care Teams Leather Stamper Relationship Specialty Start Date End Date Dima Laurent DO [address] [place] [address] PCP - General Internal Medicine 10/06/21 Akhil Wagner DPM Podiatry 05/17/15 Molly Ibarra APRN, CONVEYOR LINE BAKERY WORKER [address] [place] [address] Nurse Practitioner Advanced Practice Nurse 05/04/22 documented as of this encounter
--- OUTSIDE RECORDS SUMMARY | 2024-09-11 09:26 | XMS_ITS | Clinical Summary ---
Author Organization [facility] Address [address] [place] [address] Phone Care Team Providers Care Tree Planter Name Role Phone Akhil Wagner DPM Unavailable [phone] Dima Laurent DO Primary Care Provider Molly Ibarra APRN, REINSURANCE CLAIMS ANALYST Unavailable Allergies Active Allergy Reactions Criticality Noted Date Comments Erythromycin Rash,Nausea 05/17/2015 Medications Rizatriptan Benzoate 10 MG Tablet Take 10 mg by mouth once as needed. May repeat in 2 hours in needed Active levothyroxine (SYNTHROID) 112 MCG TabletIndicatio ns:Euthyrox Take 112 mcg by mouth daily. Indications: Euthyrox Active propranolol (INDERAL LA) 80 MG CAPSULE SR 24 HRIndications:M igraine every morning. Indications: Migraine Headache 1 07/26/19 19 Active lisinopril (PRINIVIL, ZESTRIL) 20 MG Tablet Take 40 mg by mouth daily. 3 07/24/19 19 Active pravastatin (PRAVACHOL) 40 MG Tablet daily. 2 07/24/19 19 Active ergocalciferol (VITAMIN D) 19544 UNIT Capsule once a week. 12 07/24/19 19 Active amLODIPine (NORVASC) 10 MG Tablet every morning. 05/21/19 21 Active Ferate 240 (27 Fe) MG Tablet 2 Tablets every evening. 05/21/19 21 Active rOPINIRole (REQUIP) 3 MG Tablet Take 0.25 mg by mouth nightly. Active Cyanocobalamin (B-12) 2500 MCG SL Tablet by Sublingual route. Active ondansetron (ZOFRAN-ODT) 4 MG TABLET DISPERSIBLEIndi cations:Nausea Take 1 Tablet by mouth every 8 hours as needed for Nausea - 1st line. 10 Tablet 05/04/19 23 Active Semaglutide,0.2 5 or 0.5MG/DOS, (Ozempic, 0.25 or 0.5 MG/DOSE,) 2 MG/1.5ML Solution Pen-injector Weekly on Sunday04/17/19 23 Active Melatonin 5 MG Tablet Take 3 mg by mouth nightly. Active Probiotic Product (PROBIOTIC PEARLS ADVANTAGE PO) Take by mouth. A ctive permethrin (ACTICIN) 5 % Cream APPLY TO ENTIRE BODY FROM NECK DOWN AND LEAVE ON OVERNIGHT (WASH OFF IN MORNING AND REPEAT REGIMEN IN 1 WEEK) 05/10/19 24 Active famotidine (PEPCID) 20 MG TabletIndicatio ns:Gastroesopha geal reflux disease, unspecified whether esophagitis present Take 1 Tablet by mouth every evening. 90 Tablet 3 06/04/19 24 Active Cholecalciferol (VITAMIN D3 PO) Take by mouth. Active colestipol (COLESTID) 1 GM TabletIndicatio ns:Diarrhea, unspecified type Take 1 tablet by mouth twice daily 60 Tablet 08/23/19 25 Active pantoprazole (PROTONIX) 40 MG Tablet Delayed ResponseIndicat ions:Gastroesop hageal reflux disease, unspecified whether esophagitis present Take 1 tablet by mouth once daily 30 Tablet 08/23/19 25 Active colestipol (COLESTID) 1 GM TabletIndicatio ns:Diarrhea, unspecified type Take 1 tablet by mouth twice daily 180 Tablet 05/20/19 25 025 Discontinued pantoprazole (PROTONIX) 40 MG Tablet Delayed ResponseIndicat ions:Gastroesop hageal reflux disease, unspecified whether esophagitis present Take 1 tablet by mouth once daily 90 Tablet 05/20/19 25 025 Discontinued Active Problems Problem Noted Date Diagnosed Date [...] Encounters Date Type Department Care Team Description 09/01/2024 Refill [facility] - Gastroenterology [facility] [address] [place] [phone] Molly Ibarra APRN, CNP Medication Refill 08/17/2024 [facility] [address] [place] [phone] Molly Ibarra APRN, CNP Medication Refill from Last 3 Months Immunizations [...] Comments Blood Pressure 113/81 04/11/2024 1:11 PM INDUSTRIAL THERAPIST Pulse 73 04/11/2024 1:11 PM INDUSTRIAL THERAPIST Temperature 36.8 C (98.3 F) 04/11/2024 1:11 PM INDUSTRIAL THERAPIST Respiratory Rate 18 04/11/2024 1:11 PM INDUSTRIAL THERAPIST Oxygen Saturation 98% 04/11/2024 1:11 PM INDUSTRIAL THERAPIST Inhaled Oxygen Concentration - - Weight 159.4 kg (351 lb 6.4 oz) 04/11/2024 1:11 PM INDUSTRIAL THERAPIST Height 163.8 cm (5' 4.5) 04/11/2024 1:11 PM INDUSTRIAL THERAPIST Body Mass Index 59.39 04/11/2024 1:11 PM INDUSTRIAL THERAPIST Plan of Treatment Upcoming Encounters Date Type Department Care Team (Late st Contact Info) Description 04/17/2025 3:20 PM INDUSTRIAL THERAPIST Office Visit [facility] Oncology Services [address] [place] [address] Lisa Wadsworth Kinga, PAC [address] [place] [address] Discharge Disposition: Discharged to home or Selfcare Health Maintenance Due Date Last Done Comments Hepatitis C Virus (HCV) Screening 1977 Hepatitis B Immunization (1 of 3 - 19+ 3-dose series) 1996 Pap Smear 1998 Cervical Cancer Screening (CCS) 10/21/2007 HPV/Cotest 10/21/2007 Td Immunization Every 10 Years (Adults With 1 Tdap) 05/11/2020 05/11/2010 Mammogram 11/03/2021 11/03/2020, 08/28/2019 Cologuard 2022 Colonoscopy 2022 Colorectal Cancer Screening 2022 Immunochemical Fecal Occult Blood 2022 SARS-COV-2 Immunization ( season) 2023 07/12/2020, 06/21/2020 Influenza Immunization (Season Ended) 2024 02/12/2020, 01/11/2016, 02/08/2015, Additional history exists Respiratory Syncytial Virus (RSV) Immunization (Adult) (1 - 1-dose 75+ series) 2052 DTaP/Tdap/Td Immunization Discontinued 05/11/2010 Discussion re Starting/Frequency of Mammograms Completed 11/03/2020, 08/28/2019 Human Papillomavirus (HPV) Immunization Aged Out No longer eligible based on patient's age to complete this topic Meningococcal Immunization (ACWY) Aged Out No longer [...] Comparison is made to exams dated: 08/28/2019 [facility] and 11/03/2013 [facility]. BREAST TISSUE:There are scattered fibroglandular densities [...] next screening exam. Electronically signed by: Sissy roberson/penrad:11/05/2020 08:32:56 Copper Plate Lithographer(s): RT Pita(R)(M), [facility] letter sent: Normal Exam Reading location: [facility] BI-RADS: 1 Negative Procedure Note Sissy [...] Comparison is made to exams dated: 08/28/2019 [facility] and 11/03/2013 [facility]. BREAST TISSUE:There are scattered fibroglandular densities [...] next screening exam. Electronically signed by: Sissy roberson/penrad:11/05/2020 08:32:56 Copper Plate Lithographer(s): RT Pita(R)(M), [facility] letter sent: Normal Exam Reading location: [facility] BI-RADS: 1 Negative José Manuel Andre [facility] IM MAMMO ORDERABLES Sugey l Result from Last 3 Months or Most Recently Relevant to Health Maintenance Insurance [employer] Care Teams Tree Planter Relationship Specialty Start Date End Date Dima Laurent DO [facility] [facility] [address] [address] PCP - General Internal Medicine 10/06/21 Akhil Wagner DPM Podiatry 05/17/15 Molly Ibarra APRN, REINSURANCE CLAIMS ANALYST [address] [place] [address] Nurse Practitioner Advanced Practice Nurse 05/04/22
--- OUTSIDE RECORDS SUMMARY | 2024-09-11 09:26 | XMS_ITS | Encounter Summary ---
Author Organization [facility] Address [address] [place] [address] Phone Care Team Providers Care Director Of Research And Development Name Role Phone Akhil Wagner DPM Unavailable [phone] Dima Laurent DO Primary Care Provider Molly Ibarra APRN, INSPECTOR HEATING AND REFRIGERATION Unavailable Reason for Visit * Reason Comments Medication Refill Encounter Details Date Type Department Care Team (Late st Contact Info) Description 05/31/2023 Refill [facility] - [facility] [address] [place] [address] Molly Ibarra APRN, INSPECTOR HEATING AND REFRIGERATION [address] [place] [address] Medication Refill Social History Tobacco [...] Amy Guerrero RN - 06/01/2023 9:32 AM HUMAN RESOURCES PROJECT MANAGER Medication [facility] and [facility] standing order for pediatric and adult patients. N RESOURCES PROJECT MANAGER * Telephone Encounter - Amy Guerrero RN - 06/01/2023 9:26 AM HUMAN RESOURCES PROJECT MANAGER Pharmacy requesting refill of: Requested Prescriptions Pending [...] Called patient, appt scheduled for . N RESOURCES PROJECT MANAGER documented in this encounter Plan of Treatment Upcoming Encounters Date Type Department Care Team (Late st Contact Info) Description 04/17/2025 3:20 PM HUMAN RESOURCES PROJECT MANAGER Office Visit [facility] - Cancer Center Oncology Services [address] [place] [address] Lisa Wadsworth Kinga, PAC [address] [place] [address] Discharge Disposition: Discharged to home or Selfcare documented as of this encounter Visit Diagnoses Diagnosis Diarrhea, unspecified type Gastroesophageal reflux disease, unspecified whether esophagitis present documented in this encounter Care Teams Director Of Research And Development Relationship Specialty Start Date End Date Dima Laurent DO [address] [place] [address] [place] [address] PCP - General Internal Medicine 10/06/21 Akhil Wagner DPM Podiatry 05/17/15 Molly Ibarra APRN, INSPECTOR HEATING AND REFRIGERATION [address] [place] [address] Nurse Practitioner Advanced Practice Nurse 05/04/22 documented as of this encounter
--- OUTSIDE RECORDS SUMMARY | 2024-09-11 09:26 | XMS_ITS | Encounter Summary ---
Author Organization [facility] Address [address] [place] [address] Phone Care Team Providers Care Russian Teacher Name Role Phone Akhil Wagner DPM Unavailable [phone] Dima Laurent DO Primary Care Provider Molly Ibarra APRN, HEEL REDUCER Unavailable Reason for Visit * Reason Comments Medication Refill Encounter Details Date Type Department Care Team (Late st Contact Info) Description 08/30/2023 Refill [facility] - [facility] [address] [place] [address] Molly Ibarra APRN, HEEL REDUCER [address] [place] [address] Medication Refill Social History Tobacco [...] Dept 06/04/23 Office Visit Molly [facility]bar[facility] APRN, HEEL REDUCER [facility] Showing recent visits within past 365 [...] Dept 06/04/23 Office Visit Molly Ibarra APRN, HEEL REDUCER [facility] recent visits within past 365 days and meeting all other requirements Future Appointments No visits were found meeting these conditions. Showing future appointments within next 90 days and meeting all other requirements documented in this encounter Plan of Treatment Upcoming Encounters Date Type Department Care Team (Late st Contact Info) Description 04/17/2025 3:20 PM ECOLOGICAL TECHNICAL OFFICER Office Visit [facility] Center Oncology Services [address] [place] [phone] Lisa Wadsworth Kinga, PAC [address] [place] [address] Discharge Disposition: Discharged to home or Selfcare documented as of this encounter Visit Diagnoses Diagnosis Gastroesophageal reflux disease, unspecified whether esophagitis present Diarrhea, unspecified type documented in this encounter Care Teams Russian Teacher Relationship Specialty Start Date End Date Dima Laurent DO [address] [place] [address] [place] [address] PCP - General Internal Medicine 10/06/21 Akhil Wagner DPM Podiatry 05/17/15 Molly Ibarra APRN, HEEL REDUCER [address] [place] [address] Nurse Practitioner Advanced Practice Nurse 05/04/22 documented as of this encounter
--- OUTSIDE RECORDS SUMMARY | 2024-09-11 09:26 | XMS_ITS | Encounter Summary ---
Author Organization [facility] Address [facility] [place] [address] Phone Care Team Providers Care Collar Runner Name Role Phone Carlos Ratliff DO Primary Care Provider [phone] Reason for Visit * Reason Comments Med Refill Encounter Details Date Type Department Care Team (Late st Contact Info) Description 10/29/2022 Refill [facility] [place] [facility] [address] [place] [address] Ruddy Sandoval MD [address] [place] [place] Social History Tobacco Use Types Packs/Day [...] on filedocumented in this encounter Care Teams Collar Runner Relationship Specialty Start Date End Date Carlos Ratliff DO [address] [place] [address] PCP - General Family Medicine 06/27/21 documented as of this encounter
--- OUTSIDE RECORDS SUMMARY | 2024-09-11 09:26 | XMS_ITS | Encounter Summary ---
Author Organization [facility] Address [address] [place] [address] Phone Care Team Providers Care Flatwork Finisher Name Role Phone Akhil Wagner DPM Unavailable [phone] Dima Laurent DO Primary Care Provider Molly Ibarra APRN, CRAB CATCHER Unavailable Reason for Visit * Reason Comments Medication Refill Encounter Details Date Type Department Care Team (Late st Contact Info) Description 02/06/2023 Refill [facility] - [facility] [address] [place] [address] Molly Ibarra APRN, CRAB CATCHER [address] [place] [address] Medication Refill Social History Tobacco [...] Amy Guerrero RN - 02/07/2023 1:41 PM BOIL OFF WORKER Medication [facility] and [facility] medication standing order for pediatric and adult patients. OFF WORKER documented in this encounter Plan of Treatment Upcoming Encounters Date Type Department Care Team (Late st Contact Info) Description 04/17/2025 3:20 PM BOIL OFF WORKER [facility] [address] [place] [address] Lisa Wadsworth Kinga, PAC [address] [place] [address] Discharge Disposition: Discharged to home or Selfcare documented as of this encounter Visit Diagnoses Diagnosis Gastroesophageal reflux disease, unspecified whether esophagitis present Diarrhea, unspecified type documented in this encounter Care Teams Flatwork Finisher Relationship Specialty Start Date End Date Dima Laurent DO [address] [facility] [place] [address] PCP - General Internal Medicine 10/06/21 Akhil Wagner DPM Podiatry 05/17/15 Molly Ibarra APRN, CRAB CATCHER [address] [place] [address] Nurse Practitioner Advanced Practice Nurse 05/04/22 documented as of this encounter
--- OUTSIDE RECORDS SUMMARY | 2024-09-11 09:26 | XMS_ITS | Referral Summary ---
Author Organization [facility] Medical Office Building B Address [address] [place] [address] Care Team Providers Care Rn Shift Mgr Name Role Phone Carlos Ratliff Primary Care Provider [phone] Dom Barney MD Unavailable [phone] Allergies Active Allergy Reactions Criticality Noted Date [...] tabletIndications: hypertension Take 30 mg by mouth international sales manager before breakfast 07/24/19 19 Active cholecalciferol (VITAMIN D-3) 50,000 unit tabletIndications: Prevention of Vitamin D Deficiency Take 50,000 Units by mouth once a week Mondays Active pravastatin (PRAVACHOL) 40 mg tabletIndications: hyperlipidemia Take 40 mg by mouth international sales manager before breakfast 07/24/19 19 Active furosemide (LASIX) 20 mg tabletIndications: Edema Take 20 mg by mouth as needed Active medroxyPROGESTERon e (PROVERA) 10 mg tabletIndications: Abnormal Uterine Bleeding due to Hormonal Imbalance Take 1 tab daily , once a day x 90 days. 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 Vitamin D deficiency [...] on file Legal Sex Female 1:41 AM TUGGER OPERATOR Gender Identity Not on file Sexual Orientation Not on file Last Filed Vital Signs Vital Sign Reading Time Taken Comments Blood Pressure 104/68 11/27/2021 4:27 PM CDT Pulse 106 11/27/2021 4:27 PM CDT Temperature 37.5 C (99.5 F) 11/27/2021 4:27 PM CDT Respiratory Rate 23 11/27/2021 4:2 7 PM CDT Oxygen Saturation 97% 11/27/2021 4:27 PM CDT Inhaled Oxygen Concentration - - Weight 168.1 kg (370 lb 9.6 oz) 11/27/2021 4:27 PM CDT Height 165.1 cm (5' 5) 11/27/2021 4:27 PM CDT Body Mass Index 61.67 11/27/2021 4:27 PM CDT Plan of Treatment Not on file Medical Devices Implanted Type Area Bulker Device Identifier Shelf Expiration Date Model / Serial / Lot 3V Transaction Services Lab 54826-562-85 Mirena 52mg Device Contraceptive Levonorgetrel - [id number] - [id number] Implanted:Qty: 1 on 04/10/2019 by Kristy Villarreal MD at [facility] N/A: Uterus Berlex Lab 06/24/2021 78805-484- 01 / [id number] / [id number] Procedures Procedure Name Priority Date/Time Associated Diagnosis Comments DIGITAL MAMMOGRAPHY Routine 11/03/2013 3 :13 PM CDT from Last 3 Months or Most Recently Relevant to Health Maintenance Results * DIGITAL MAMMOGRAPHY (11/03/2013 3:13 PM CDT) Anatomical Region Laterality Modality Breast Mammography 11/03/2013 3:13 PM CDT Narrative 11/04/2013 8:57 AM CDT Vm Mammogram Performed by: Screening Mamm Bi Acc#: [id number] DATE OF EXAM: Nov 03 2013 CLINICAL [...] Mammogram Performed by: Screening Mamm Bi Acc#: [id number] DATE OF EXAM: Nov 03 2013 CLINICAL [...] Most Recently Relevant to Health Maintenance Insurance [employer] OPEN ACCESS [employer] OPEN ACCESS [employer] OPEN ACCESS Care Teams Rn Shift Mgr Relationship Specialty Start Date End Date Carlos Ratliff DO PCP - General 11/30/10 Dom Barney MD [address] [place] [address] [place] [address] Mechanical Unit Repairer Obstetrics and Gynecology 01/17/19
--- OUTSIDE RECORDS SUMMARY | 2024-09-11 09:26 | XMS_ITS | Clinical Summary ---
Author Organization [facility] Medical Office Building B Address [address] [place] [address] Care Team Providers Care Clerical Support Specialist Name Role Phone Carlos Ratliff Primary Care Provider [phone] Dom Barney MD Unavailable [phone] Allergies Active Allergy Reactions Criticality Noted Date [...] tabletIndications: hypertension Take 30 mg by mouth rewind operator before breakfast 07/24/19 19 Active cholecalciferol (VITAMIN D-3) 50,000 unit tabletIndications: Prevention of Vitamin D Deficiency Take 50,000 Units by mouth once a week Mondays Active pravastatin (PRAVACHOL) 40 mg tabletIndications: hyperlipidemia Take 40 mg by mouth rewind operator before breakfast 07/24/19 19 Active furosemide (LASIX) 20 mg tabletIndications: Edema Take 20 mg by mouth as needed Active medroxyPROGESTERon e (PROVERA) 10 mg tabletIndications: Abnormal Uterine Bleeding due to Hormonal Imbalance Take 1 tab daily , once a day x 90 days. 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 Vitamin D deficiency [...] rosis; Other Maternal Grandmother blocka ge in bowels; Cause of : blockage in bowels/heart problem; Uterine cancer Maternal Grandmother Uteri ne Cancer; Hypertension Mother Hypertension; Osteoporosis Mother Osteoporosis; / Osteoporosis; Other Mother irregular hear t beat; Thyroid disease Mother Thyroid dise ase; Heart [...] on file 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 Gender Identity Not on file Sexual Orientation [...] this topic Medical Devices Implanted Type Area Boulevard Glassware Replacer Device Identifier Shelf Expiration Date Model / Serial / Lot Berlex Lab 05546-465-77 Mirena 52mg Device Contraceptive Levonorgetrel - [id number] - [id number] Implanted:Qty: 1 on 04/10/2019 by Kristy Villarreal MD at [facility] N/A: Uterus Berlex Lab 06/24/2021 [id number]- 01 / [id number] / [id number] Procedures Procedure Name Priority Date/Time Associated Diagnosis Comments DIGITAL MAMMOGRAPHY Routine 11/03/2013 3 :13 PM CDT from Last 3 Months or Most Recently Relevant to Health Maintenance Results * DIGITAL MAMMOGRAPHY (11/03/2013 3:13 PM CDT) Anatomical Region Laterality Modality Breast Mammography 11/03/2013 3:13 PM CDT Narrative 11/04/2013 8:57 AM CDT Vm Mammogram Performed by: SS Screening Mamm Bi Acc#: [id number] DATE OF EXAM: Nov 03 2013 CLINICAL [...] Mammogram Performed by: Screening Mamm Bi Acc#: [id number] DATE OF EXAM: Nov 03 2013 CLINICAL [...] OPEN ACCESS [employer] OPEN ACCESS Care Teams Clerical Support Specialist Relationship Specialty Start Date End Date Carlos Ratliff DO PCP - General 11/30/10 Dom Barney MD [address] [place] [address] DR JAMES [address] [place] [address] Regional Owner Operator Truck Driver Obstetrics and Gynecology 01/17/19
--- OUTSIDE RECORDS SUMMARY | 2024-09-11 09:26 | XMS_ITS | Encounter Summary ---
Author Organization [facility] Address [address] [place] [address] Phone Care Team Providers Care Band Nailer Name Role Phone Akhil Wagner DPM Unavailable [phone] Dima Laurent DO Primary Care Provider Molly Ibarra APRN, SUBSURFACE AUGMENTEE OPERATOR Unavailable Reason for Visit * Reason Comments Medication Refill Encounter Details Date Type Department Care Team (Late st Contact Info) Description 03/08/2022 Refill [facility] Oncology Services [address] [place] [address] Alberto Myles MD [address] [place] [address] Medication Refill Social History Tobacco [...] Coronavirus/COVID-19? No / Unsure 02/07/2022 7:23 AM MACHINE SHORTHAND REPORTER documented as of this encounter Miscellaneous Notes * Telephone Encounter - Amy Guerrero RN - 03/13/2022 4:37 PM MACHINE SHORTHAND REPORTER Omeprazole order pended, please review. Please review messages below. INE SHORTHAND REPORTER * Telephone Encounter - Amy Guerrero RN - 03/13/2022 4:37 PM MACHINE SHORTHAND REPORTER Images from the original note were not included. Claire Jenkins RN You 2 hours ago (2:09 PM) Can you please follow up on this refill. Dr Sterling's note states patient is to continue the Omeprazole but Dr Myles only ordered it until the patient was seen in GI. It now needs to be filled by Dr Sterling. Thank you Claire Muñoz CENTRAL PROCESSING TECH [phone] INE SHORTHAND REPORTER * Telephone Encounter - Radha Luciano RN - 03/09/2022 3:18 PM CST Forwarding to GI nurse/team for future refills. Hallie's last note states to continue med. Dr. Myles ordered the Omeprazole originally to get her through until her GI refill. INE SHORTHAND REPORTER documented in this encounter Plan of Treatment Upcoming Encounters Date Type Department Care Team (Late st Contact Info) Description 04/17/2025 3:20 PM MACHINE SHORTHAND REPORTER Office Visit [facility] Center Oncology Services [address] [place] [id number] Lisa Wadsworth Kinga, PAC [address] [place] [address] Discharge Disposition: Discharged to home or Selfcare documented as of this encounter Visit Diagnoses Not on filedocumented in this encounter Care Teams Band Nailer Relationship Specialty Start Date End Date Dima Laurent DO [address] [facility] [place] [address] PCP - General Internal Medicine 10/06/21 Akhil Wagner DPM Podiatry 05/17/15 Molly Ibarra APRN, SUBSURFACE AUGMENTEE OPERATOR [address] [place] [address] Nurse Practitioner Advanced Practice Nurse 05/04/22 documented as of this encounter
--- OUTSIDE RECORDS SUMMARY | 2024-09-11 09:26 | XMS_ITS | Encounter Summary ---
Author Organization [facility] Address [address] [place] [address] Phone Care Team Providers Care Plush Cutter Name Role Phone Akhil Wagner DPM Unavailable [phone] Dima Laurent DO Primary Care Provider Molly Ibarra APRN, TIRE BALANCER Unavailable Encounter Details Date Type Department Care Team (Late st Contact Info) Description 02/02/2022 [facility]cribe [facility] [address] [place] [address] Ismael Sterling MD [address] [place] [address] Preop testing (Primary Dx) Social [...] Coronavirus/COVID-19? No / Unsure 02/04/2022 11:37 AM SPECIAL AGENT [employer] documented as of this encounter Plan of Treatment Upcoming Encounters Date Type Department Care Team (Late st Contact Info) Description 04/17/2025 3:20 PM SPECIAL AGENT FBI Office Visit [facility] - Cancer Center Oncology Services [address] [place] [address] Lisa Wadsworth Kinga, PAC [address] [place] [address] Discharge Disposition: Discharged to home or Selfcare documented as of this encounter Results * SARS-COV-2 BY MOLECULAR (02/04/2022 11:50 AM SPECIAL AGENT FBI) SARSCOV2 NOT DETECTED (Referenc e Range for this test is Not Detected) [facility] ID NOW 02/04/2022 12:39 PM SPECIAL AGENT FBI [facility] Comment:This test was perfor med by a MOLECULAR, NON-PCR method Other NASAL STRUCTURE / Unknown Non-Phlebotomy Collection / Unknown 02/04/2022 11:50 AM SPECIAL AGENT FBI 02/04/2022 12:02 PM SPECIAL AGENT FBI Narrative [facility] - 02/04/2022 12:39 PM SPECIAL AGENT FBI This test has been authorized by the [...] information for Clinicians can be found at: https://www.fda.gov/media/780289/download Additional information for Patients can be found at: https://www.fda.gov/media/369878/download Ismael Sterling MD MICROBIOLOGY - GENERAL ORDERABL ES Final Result [facility] [address] [place] [address] documented in this encounter Visit Diagnoses Diagnosis Preop testing- Primary Preoperative examination, unspecified documented in this encounter Care Teams Plush Cutter Relationship Specialty Start Date End Date Dima Laurent DO [address] [facility] [place] [address] PCP - General Internal Medicine 10/06/21 Akhil Wagner DPM Podiatry 05/17/15 Molly Ibarra APRN, TIRE BALANCER [address] [place] [address] Nurse Practitioner Advanced Practice Nurse 05/04/22 documented as of this encounter
[2024-09-11 19:47] LABS: Basophils Percent Auto 0.4 % (0.2-1.2); Eosinophils Absolute Auto 0.2 K/mm3 (0-0.3); Eosinophils Percent Auto 2.1 % (0-4.4); Hematocrit 45.6 % (37.0-47.0); Hemoglobin 14.3 g/dL (12.0-15.0); Immature Granulocyte Absolute 0.05 K/mm3 (0.00-0.031); Immature Granulocyte Percent A 0.4 % (0-0.5); Lymphocytes Absolute Auto 2.42 K/mm3 (0.9-3.2); Lymphocytes Percent Auto 21.5 % (18.3-44.2); Mean Corpuscular HGB Conc 31.4 g/dl (32-36); Mean Corpuscular Hemoglobin 26.7 pg (26-34); Mean Corpuscular Volume 85.2 fl (80-100); Mean Platelet Volume 10.1 fl (7.4-10.4); Monocytes Absolute Auto 0.6 K/mm3 (0.1-0.6); Monocytes Percent Auto 5.7 % (2.6-8.5); Neutrophils Absolute Auto 7.9 K/mm3 (1.3-6.7); Neutrophils Percent Auto 69.9 % (45.5-73.1); Platelet Count Result 285 k/mm3 (150-375); Red Blood Count 5.35 M/mm3 (4.2-5.4); Red Cell Distribution Width 14.4 % (11.5-14.5); White Blood Count 11.3 K/mm3 (4.5-10.0)
[2024-09-11 19:52] LABS: Alanine Aminotransferase 39 U/L (6-35); Albumin Level 4.1 g/dL (3.5-5.1); Alkaline Phosphatase 108 U/L (38-126); Anion Gap 7 mmol/L (4-12); Aspartate Amino Transferase 46 U/L (14-36); Bilirubin,Total 0.4 mg/dL (0.2-1.3); Blood Urea Nitrogen 12 mg/dL (7-17); Calcium 9.7 mg/dL (8.4-10.2); Carbon Dioxide 26 mmol/L (22-30); Chloride 106 mmol/L (98-107); Estimated Glomerular Filt Rate > 60; Glucose 97 mg/dL (65-110); Potassium 4.4 mmol/L (3.4-5.0); Sodium 139 mmol/L (137-145); Total Protein 7.5 g/dL (6.3-8.2)
[2024-09-11 20:30] LABS: Iron 66 ug/dL (37-170)
[2024-09-11 20:40] LABS: Percent Iron Saturation 18 % (20-50)
== END 2024-09-11 09:07 | disposition home or self-care (01) ==
LOC: ANHGOSHLAB 09:07
PROVIDERS: PCP Clinical Nurse Specialist; Visit Provider Clinical Nurse Specialist
DX: R74.01 Elevation of levels of liver transaminase levels (principal); D50.9 Iron deficiency anemia, unspecified; R74.8 Abnormal levels of other serum enzymes
CPT/HCPCS: 36415; 80053; 82728; 83540; 83550; 85025

== ENCOUNTER 2025-01-14 10:15 | Outpatient (CLI) | payer OTHER, SELFPAY ==
--- OUTSIDE RECORDS SUMMARY | 2025-01-14 12:24 | XMS_ITS | Encounter Summary ---
Author Organization [facility] Address [address] [place] [address] Phone Care Team Providers Care Online Marketing Coordinator Name Role Phone Akhil Wagner DPM Unavailable [phone] Dima Laurent DO Primary Care Provider Molly Ibarra APRN, SLIP MIXER Unavailable Reason for Visit * Reason Comments Medication Refill Encounter Details Date Type Department Care Team (Late st Contact Info) Description 09/01/2024 Refill [facility] - Gastroenterology - [place] [address] [place] [address] Molly Ibarra APRN, SLIP MIXER [address] [place] [id number] Medication Refill Social History Tobacco Use Types [...] st Contact Info) Description 04/17/2025 3:20 PM CABLE INSTALLATION MANAGER Office Visit [facility] Oncology Services [address] [place] [address] Wadsworth Lisa Kinga, PAC [address] [place] [address] Discharge Disposition: Discharged to home or Selfcare documented as of this encounter Visit Diagnoses Diagnosis Gastroesophageal reflux disease, unspecified whether esophagitis present documented in this encounter Care Teams Online Marketing Coordinator Relationship Specialty Start Date End Date Dima Laurent DO [address] [facility] [place] [address] PCP - General Internal Medicine 10/06/21 Akhil Wagner DPM Podiatry 05/17/15 Molly Ibarra APRN, SLIP MIXER [address] [place] [address] Nurse Practitioner Advanced Practice Nurse 05/04/22 documented as of this encounter
--- OUTSIDE RECORDS SUMMARY | 2025-01-14 12:24 | XMS_ITS | Encounter Summary ---
Author Organization [facility] Address [address] [place] [address] Phone Care Team Providers Care Keyboard Action Assembler Name Role Phone Akhil Wagner DPM Unavailable [phone] Dima Laurent DO Primary Care Provider Molly Ibarra APRN, CURVE CLEANER Unavailable Reason for Visit * Reason Comments Medication Refill Encounter Details Date Type Department Care Team (Late st Contact Info) Description 08/30/2023 [facility]ill [facility] [address] [place] [address] Molly Ibarra APRN, CURVE CLEANER [address] [place] [address] Medication Refill Social History Tobacco Use Types [...] encounter Miscellaneous Notes * Telephone Encounter - Jorge, Sun S, RN - 08/30/2023 8:25 AM CDT Medication [...] Dept 06/04/23 Office Visit Molly Ibarra APRN, CURVE CLEANER [facility] Show[facility] recent visits within past 365 days [...] Dept 06/04/23 Office Visit Molly Ibarra APRN, CURVE CLEANER [facility] Show[facility] recent visits within past 365 days and meeting all other requirements Future Appointments No visits were found meeting these conditions. Showing future appointments within next 90 days and meeting all other requirements documented in this encounter Plan of Treatment Upcoming Encounters Date Type Department Care Team (Late st Contact Info) Description 04/17/2025 3:20 PM STONE GANG SAWYER Office Visit [facility] Center Oncology Services [address] [place] [address] Lisa Wadsworth Kinga, PAC [address] [place] [address] Discharge Disposition: Discharged to home or Selfcare documented as of this encounter Visit Diagnoses Diagnosis Gastroesophageal reflux disease, unspecified whether esophagitis present Diarrhea, unspecified type documented in this encounter Care Teams Keyboard Action Assembler Relationship Specialty Start Date End Date Dima Laurent DO [address] [facility] [place] [address] PCP - General Internal Medicine 10/06/21 Akhil Wagner DPM Podiatry 05/17/15 Molly Ibarra APRN, CURVE CLEANER [address] [place] [address] Nurse Practitioner Advanced Practice Nurse 05/04/22 documented as of this encounter
--- OUTSIDE RECORDS SUMMARY | 2025-01-14 12:25 | XMS_ITS | Clinical Summary ---
Author Organization [facility] Address [address] [place] [address] Phone Care Team Providers Care Hotel Concierge Name Role Phone Akhil Wagner DPM Unavailable [phone] Dima Laurent DO Primary Care Provider Molly Ibarra APRN, SIX SIGMA BLACK TRAINER Unavailable Allergies Active Allergy Reactions Criticality Noted [...] daily. 2 9 Active ergocalciferol (VITAMIN D) 22475 UNIT Capsule once a week. 12 9 [...] tablet by mouth twice daily 60 Tablet 5 Active pantoprazole (PROTONIX) 40 MG Tablet Delayed ResponseIndicati ons:Gastroesopha geal reflux disease, unspecified whether esophagitis present Take 1 tablet by mouth once daily 30 Tablet 5 Active Active Problems Problem Noted [...] for breast cancer screening using non-mammogram modality Immunizations Immunization Administration Dates Next Due Influenza [...] Comments Blood Pressure 113/81 04/11/2024 1:11 PM REVENUE DIRECTOR Pulse 73 04/11/2024 1:11 PM REVENUE DIRECTOR Temperature 36.8 C (98.3 F) 04/11/2024 1:11 PM REVENUE DIRECTOR Respiratory Rate 18 04/11/2024 1:11 PM REVENUE DIRECTOR Oxygen Saturation 98% 04/11/2024 1:11 PM REVENUE DIRECTOR Inhaled Oxygen Concentration - - Weight 159.4 kg (351 lb 6.4 oz) 04/11/2024 1:11 PM REVENUE DIRECTOR Height 163.8 cm (5' 4.5) 04/11/2024 1:11 PM REVENUE DIRECTOR Body Mass Index 59.39 04/11/2024 1:11 PM REVENUE DIRECTOR Plan of Treatment Upcoming Encounters Date Type Department Care Team (Late st Contact Info) Description 04/17/2025 3:20 PM REVENUE DIRECTOR Office Visit [facility] - Cancer Center Oncology Services [address] [place] [address] Lisa Wadsworth Kinga, PAC [address] [place] [address] Discharge Disposition: Discharged to home or Selfcare [...] Screening 2022 Immunochemical Fecal Occult Blood 2022 Influenza Immunization (#1) 11/24/202401/24, 01/11/2016, 02/08/2015, Additional history exists SARS-COV-2 Immunization ( - 2024- season) 2024 07/12/2020, 06/21/2020 Respiratory Syncytial Virus (RSV) Immunization [...] Comparison is made to exams dated: 08/28/2019 [facility] and 11/03/2013 [facility]. BREAST TISSUE:There are scattered fibroglandular densities [...] exam. Electronically signed by: Sissy roberson/jaylan:11/05/2020 08:32:56 Beverage Manager(s): RT Pita(R)(M), [facility] letter sent: Normal Exam Reading location: [facility] BI-RADS: 1 Negative Procedure Note Sissy Wiley MD - 11/05/2020 - NIRLAI SCREENING BILATERAL DIGITAL W CAD W TOMMIE [...] Comparison is made to exams dated: 08/28/2019 [facility] and 11/03/2013 [facility]. BREAST TISSUE:There are scattered fibroglandular densities [...] exam. Electronically signed by: Sissy roberson/jaylan:11/05/2020 08:32:56 Beverage Manager(s): RT Pita(R)(M), [facility] letter sent: Normal Exam Reading location: [facility] BI-RADS: 1 Negative [facility] IMG MAMMO ORDERABLES Sugey l Result from Last 3 Months or Most Recently Relevant to Health Maintenance Insurance [facility] Care Teams Hotel Concierge Relationship Specialty Start Date End Date Dima Laurent DO [address] [place] [address] [place] [address] PCP - General Internal Medicine 10/06/21 Akhil Wagner DPM Podiatry 05/17/15 Molly Ibarra APRN, SIX SIGMA BLACK TRAINER [address] [place] [address] Nurse Practitioner Advanced Practice Nurse 05/04/22
--- OUTSIDE RECORDS SUMMARY | 2025-01-14 12:25 | XMS_ITS | Encounter Summary ---
Author Organization [facility] Address [address] [place] [address] Phone Care Team Providers Care Vp Mobile Products Name Role Phone Akhil Wagner DPM Unavailable [phone] Dima Laurent DO Primary Care Provider Molly Ibarra APRN, SENIOR COGNOS DEVELOPER Unavailable Encounter Details Date Type Department Care Team (Late st Contact Info) Description 02/02/2022 [facility] [address] [place] [address] Ismael Sterling MD [address] [place] [address] Preop testing (Primary Dx) Social [...] Coronavirus/COVID-19? No / Unsure 02/04/2022 11:37 AM CUTTER AND PASTER PRESS CLIPPINGS documented as of this encounter Plan of Treatment Upcoming Encounters Date Type Department Care Team (Late st Contact Info) Description 04/17/2025 3:20 PM CUTTER AND PASTER PRESS CLIPPINGS Office Visit [facility] - Cancer Center Oncology Services [address] [place] [address] Lisa Wadsworth Kinga, PAC [address] [place] [address] Discharge Disposition: Discharged to home or Selfcare documented as of this encounter Results * SARS-COV-2 BY MOLECULAR (02/04/2022 11:50 AM CUTTER AND PASTER PRESS CLIPPINGS) SARSCOV2 NOT DETECTED (Referenc e Range for this test is Not Detected) [facility] ID NOW 02/04/2022 12:39 PM CUTTER AND PASTER PRESS CLIPPINGS [facility] Comment:This test was perfor med by a MOLECULAR, NON-PCR method Other NASAL STRUCTURE / Unknown Non-Phlebotomy Collection / Unknown 02/04/2022 11:50 AM CUTTER AND PASTER PRESS CLIPPINGS 02/04/2022 12:02 PM CUTTER AND PASTER PRESS CLIPPINGS Narrative [facility] - 02/04/2022 12:39 PM CUTTER AND PASTER PRESS CLIPPINGS This test has been authorized by the [...] information for Clinicians can be found at: https://www.fda.gov/media/465990/download Additional information for Patients can be found at: https://www.fda.gov/media/805447/download Ismael Sterling MD MICROBIOLOGY - GENERAL ORDERABL ES Final Result [facility] [address] [place] [address] documented in this encounter Visit Diagnoses Diagnosis Preop testing- Primary Preoperative examination, unspecified documented in this encounter Care Teams Vp Mobile Products Relationship Specialty Start Date End Date Dima Laurent DO [address] [facility] [place] [address] PCP - General Internal Medicine 10/06/21 Akhil Wagner DPM Podiatry 05/17/15 Molly Ibarra APRN, SENIOR COGNOS DEVELOPER [address] [place] [address] Nurse Practitioner Advanced Practice Nurse 05/04/22 documented as of this encounter
--- OUTSIDE RECORDS SUMMARY | 2025-01-14 12:25 | XMS_ITS | Encounter Summary ---
Author Organization [facility] Address [address] [place] [address] Phone Care Team Providers Care Senior Physical Therapist Name Role Phone Akhil Wagner DPM Unavailable [phone] Dima Laurent DO Primary Care Provider Molly Ibarra APRN, CASTINGS DRAFTER Unavailable Reason for Visit * Reason Comments Medication Refill Encounter Details Date Type Department Care Team (Late st Contact Info) Description 05/31/2023 Refill [facility] [address] [place] [address] Molly Ibarra APRN, CASTINGS DRAFTER [address] [place] [address] Medication Refill Social History Tobacco [...] Amy Guerrero RN - 06/01/2023 9:32 AM DISEASE CASE MANAGER Medication refilled and signed [facility] order for pediatric and adult patients. ASE CASE MANAGER * Telephone Encounter - Amy Guerrero RN - 06/01/2023 9:26 AM DISEASE CASE MANAGER Pharmacy requesting refill of: Requested Prescriptions [...] scheduled. Called patient, appt scheduled for . ASE CASE MANAGER documented in this encounter Plan of Treatment Upcoming Encounters Date Type Department Care Team (Late st Contact Info) Description 04/17/2025 3:20 PM DISEASE CASE MANAGER Office Visit [facility] - [facility] Center Oncology Services [address] [place] [address] Lisa Wadsworth Kinga, PAC [address] [place] [address] Discharge Disposition: Discharged to home or Selfcare documented as of this encounter Visit Diagnoses Diagnosis Diarrhea, unspecified type Gastroesophageal reflux disease, unspecified whether esophagitis present documented in this encounter Care Teams Senior Physical Therapist Relationship Specialty Start Date End Date Dima Laurent DO [address] [place] [address] [place] [address] PCP - General Internal Medicine 10/06/21 Akhil Wagner DPM Podiatry 05/17/15 Molly Ibarra APRN, CASTINGS DRAFTER [address] [place] [address] Nurse Practitioner Advanced Practice Nurse 05/04/22 documented as of this encounter
--- OUTSIDE RECORDS SUMMARY | 2025-01-14 12:25 | XMS_ITS | Clinical Summary ---
Author Organization [facility] Medical Office Building [address] Address [address] [place] [address] Care Team Providers Care Seaman Name Role Phone Carlos Ratliff Primary Care Provider [phone] Dom Barney MD Unavailable [phone] Allergies Active Allergy Reactions Criticality Noted Date [...] tabletIndications: hypertension Take 30 mg by mouth digital sales planner before breakfast 07/24/19 19 Active cholecalciferol (VITAMIN D-3) 50,000 unit tabletIndications: Prevention of Vitamin D Deficiency Take 50,000 Units by mouth once a week Mondays Active pravastatin (PRAVACHOL) 40 mg tabletIndications: hyperlipidemia Take 40 mg by mouth digital sales planner before breakfast 07/24/19 19 Active furosemide (LASIX) 20 mg tabletIndications: Edema Take 20 mg by mouth as needed Active medroxyPROGESTERon e (PROVERA) 10 mg tabletIndications: Abnormal Uterine Bleeding due to Hormonal Imbalance Take 1 tab daily , once a day x 90 days. 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 Gender Identity Not on file Sexual Orientation [...] on file Medical Devices Implanted Type Area Scow Derrick Operator Device Identifier Shelf Expiration Date Model / Serial / Lot [employer] 87452-822-45 Mirena 52mg Device Contraceptive Levonorgetrel - [id number] - [id number] Implanted:Qty: 1 on 04/10/2019 by Kristy Villarreal MD at [facility] N/A: Uterus [employer] 06/24/2021 [id number]- [id number] / [id number] / [id number] Insurance [employer] OPEN ACCESS [employer] OPEN ACCESS [employer] OPEN ACCESS Care Teams Seaman Relationship Specialty Start Date End Date Carlos Ratliff DO PCP - General 11/30/10 Dom Barney MD [address] [place] [address] High Lead Yarder Obstetrics and Gynecology 01/17/19
--- OUTSIDE RECORDS SUMMARY | 2025-01-14 12:25 | XMS_ITS | Encounter Summary ---
Author Organization [facility] Address [address] [place] [address] Phone Care Team Providers Care Drier Operator Helper Name Role Phone Akhil Wagner DPM Unavailable [phone] Dima Laurent DO Primary Care Provider Molly Ibarra APRN, TALENT DEVELOPMENT ANALYST Unavailable Reason for Visit * Reason Comments Medication Refill Encounter Details Date Type Department Care Team (Late st Contact Info) Description 02/06/2023 Refill [facility] - [facility] [address] [place] [id number] Molly Ibarra APRN, TALENT DEVELOPMENT ANALYST [address] [place] [address] Medication Refill Social History Tobacco [...] Amy Guerrero RN - 02/07/2023 1:41 PM INSTALLER Medication refilled and signed per [facility] standing order for pediatric and adult patients. ALLER documented in this encounter Plan of Treatment Upcoming Encounters Date Type Department Care Team (Late st Contact Info) Description 04/17/2025 3:20 PM INSTALLER [facility] [address] [place] [address] Lisa Wadsworth, PAC [address] [place] [address] Discharge Disposition: Discharged to home or Selfcare documented as of this encounter Visit Diagnoses Diagnosis Gastroesophageal reflux disease, unspecified whether esophagitis present Diarrhea, unspecified type documented in this encounter Care Teams Drier Operator Helper Relationship Specialty Start Date End Date Dima Laurent DO [address] [facility] [place] [address] PCP - General Internal Medicine 10/06/21 Akhil Wagner DPM Podiatry 05/17/15 Molly Ibarra APRN, TALENT DEVELOPMENT ANALYST [address] [place] [address] Nurse Practitioner Advanced Practice Nurse 05/04/22 documented as of this encounter
--- OUTSIDE RECORDS SUMMARY | 2025-01-14 12:25 | XMS_ITS | Encounter Summary ---
Author Organization [facility] Address [address] [place] [address] Phone Care Team Providers Care Sod Farmer Name Role Phone Akhil Wagner DPM Unavailable [phone] Dima Laurent DO Primary Care Provider Molly Ibarra APRN, PLASTERER APPRENTICE Unavailable Reason for Visit * Reason Comments Medication Refill Encounter Details Date Type Department Care Team (Late st Contact Info) Description 03/08/2022 Refill [facility] On[facility] [address] [place] [address] Alberto Myles MD [address] [place] [address] Medication Refill Social History Tobacco [...] Coronavirus/COVID-19? No / Unsure 02/07/2022 7:23 AM BARREL TESTER documented as of this encounter Miscellaneous Notes * Telephone Encounter - Amy Guerrero RN - 03/13/2022 4:37 PM BARREL TESTER Omeprazole order pended, please review. Please review messages below. EL TESTER * Telephone Encounter - Amy Guerrero RN - 03/13/2022 4:37 PM BARREL TESTER Images from the original note were not included. Claire Jenkins RN You 2 hours ago (2:09 PM) Can you please follow up on this refill. Dr Sterling's note states patient is to continue the Omeprazole but Dr Myles only ordered it until the patient was seen in GI. It now needs to be filled by Dr Sterling. Thank you Claire Muñoz SATELLITE MANAGER [phone] EL TESTER * Telephone Encounter - Radha Luciano RN - 03/09/2022 3:18 PM CST Forwarding to GI nurse/team for future refills. Hallie's last note states to continue med. Dr. Myles ordered the Omeprazole originally to get her through until her GI refill. EL TESTER documented in this encounter Plan of Treatment Upcoming Encounters Date Type Department Care Team (Late st Contact Info) Description 04/17/2025 3:20 PM BARREL TESTER Office Visit [facility] [address] [place] [id number] Lisa Wadsworth Iknga, PAC [address] [place] [address] Discharge Disposition: Discharged to home or Selfcare documented as of this encounter Visit Diagnoses Not on filedocumented in this encounter Care Teams Sod Farmer Relationship Specialty Start Date End Date Dima Laurent DO [address] [facility] [address] PCP - General Internal Medicine 10/06/21 Akhil Wagner DPM Podiatry 05/17/15 Molly Ibarra APRN, PLASTERER APPRENTICE [address] [place] [address] Nurse Practitioner Advanced Practice Nurse 05/04/22 documented as of this encounter
[2025-01-14 15:11] LABS: Hematocrit 46.9 % (37.0-47.0); Hemoglobin 14.5 g/dL (12.0-15.0); Immature Granulocyte Percent A 0.3 % (0-0.5); Lymphocytes Absolute Auto 2.37 K/mm3 (0.9-3.2); Mean Corpuscular HGB Conc 30.9 g/dl (32-36); Mean Corpuscular Hemoglobin 26.2 pg (26-34); Mean Corpuscular Volume 84.8 fl (80-100); Nucleated Red Blood Cells Absolute Auto 0.000 K/mm3 (0.0-0.012); Nucleated Red Blood Cells Perc 0.0 % (0.0-0.2); Platelet Count Result 328 k/mm3 (150-375); Red Blood Count 5.53 M/mm3 (4.2-5.4); White Blood Count 11.7 K/mm3 (4.5-10.0)
[2025-01-14 16:00] LABS: Alanine Aminotransferase 26 U/L (6-35); Albumin Level 4.1 g/dL (3.5-5.1); Alkaline Phosphatase 110 U/L (38-126); Anion Gap 7 mmol/L (4-12); Aspartate Amino Transferase 31 U/L (14-36); Bilirubin,Total 0.3 mg/dL (0.2-1.3); Blood Urea Nitrogen 10 mg/dL (7-17); Calcium 9.5 mg/dL (8.4-10.2); Carbon Dioxide 24 mmol/L (22-30); Chloride 107 mmol/L (98-107); Estimated Glomerular Filt Rate > 60; Glucose 98 mg/dL (65-110); Potassium 4.0 mmol/L (3.4-5.0); Sodium 138 mmol/L (137-145); Total Protein 7.6 g/dL (6.3-8.2)
[2025-01-14 16:53] LABS: Vitamin B12 302.0 pg/mL (239-931)
[2025-01-14 17:10] LABS: Iron 38 ug/dL (37-170)
[2025-01-14 17:23] LABS: Percent Iron Saturation 11 % (20-50)
[2025-01-14 17:47] LABS: Ferritin 164.00 ng/mL (6.24-137)
[2025-01-14 19:13] LABS: Hemoglobin A1C 5.2 % (<5.7)
== END 2025-01-14 10:16 | disposition home or self-care (01) ==
LOC: ANHGOSHLAB 10:15
PROVIDERS: PCP Clinical Nurse Specialist; Visit Provider Clinical Nurse Specialist
DX: R74.8 Abnormal levels of other serum enzymes (principal); E53.8 Deficiency of other specified B group vitamins; R74.01 Elevation of levels of liver transaminase levels; D72.829 Elevated white blood cell count, unspecified; R73.01 Impaired fasting glucose; D53.8 Other specified nutritional anemias; I12.9 Hypertensive chronic kidney disease with stage 1 through stage 4 chronic kidney disease, or unspecified chronic kidney disease; N18.9 Chronic kidney disease, unspecified
CPT/HCPCS: 36415; 80053; 82607; 82728; 83036; 83540; 83550; 85025